=== PATIENT | male | born 1935 | race Caucasian/White ===

== ENCOUNTER 2020-07-27 12:09 | Inpatient (IN) | payer MEDICARE ==
[2020-07-27] MEDS ORDERED: CALCIUM CARBONATE 500 MG CHEWABLE PO PRN (15:19)
[2020-07-27] MEDS ORDERED: NALOXONE 0.4 MG/ML 1 ML VIAL IV PRN (15:19)
[2020-07-27] MEDS ORDERED: ONDANSETRON 4 MG/2 ML VIAL IVP PRN (15:19)
[2020-07-27] MEDS ORDERED: LACTULOSE 20 GM/30 ML CUP PO PRN (15:19)
[2020-07-27] MEDS ORDERED: ACETAMINOPHEN TAB 325 MG TAB PO PRN (15:19)
[2020-07-27] MEDS ORDERED: MAG HYDROX/AL HYDROX/SIMETH 30 ML CUP PO PRN (15:19)
[2020-07-27] MEDS ORDERED: MELATONIN 3 MG TABLET PO PRN (15:19)
[2020-07-27 16:03] LABS: Basophils # (A) 0.1 k/uL (0-0.2); Basophils % (A) 1 %; Eosinophils # (A) 0.1 k/uL (0-0.7); Eosinophils % (A) 1 %; HGB 10.2 gm/dL (13.0-17.5); Hypochromasia Moderate; Lymphocytes # (A) 0.6 k/uL (1.0-4.8); Lymphocytes % (A) 11 %; MCHC 31.8 g/dL (31.0-37.0); MCV 106.8 fL (80.0-100.0); Macrocytosis Moderate; Mean Platelet Volume 10.6; Monocytes # (A) 0.3 k/uL (0-1.0); Monocytes % (A) 6 %; Neutrophils # (A) 4.3 k/uL (1.3-7.7); Neutrophils % (A) 80 %; Platelet Count 138 k/uL (150-450); RBC 2.99 m/uL (4.30-5.90); WBC 5.4 k/uL (3.8-10.6)
[2020-07-27 16:39] LABS: Albumin 3.9 g/dL (3.5-5.0); Calcium 9.4 mg/dL (8.4-10.2); Potassium 5.6 mmol/L (3.5-5.1); Total Bilirubin 0.5 mg/dL (0.2-1.3); Total Protein 7.2 g/dL (6.3-8.2)
[2020-07-27] MEDS: ENOXAPARIN 40 MG/0.4 ML SYRINGE SQ SCH (17:28)
--- NOTE | 2020-07-27 18:16 | XR ---
EXAMINATION TYPE: XR chest 2V DATE OF EXAM: 07/27/2020 COMPARISON: NONE HISTORY: Short of breath TECHNIQUE: 2 views FINDINGS: There is blunting of the costophrenic angles. Heart size is normal. There are chest leads. There are no hilar masses. There are surgical clips at the right paratracheal region. There is mild p ulmonary congestion. There is some fluid in the fissures. IMPRESSION: There are changes consistent with mild chronic heart failure.
[2020-07-27] MEDS: SODIUM BICARBONATE TAB 650 MG TAB PO SCH (20:33)
[2020-07-27] MEDS: METOPROLOL TARTRATE 25 MG TAB PO SCH (20:33)
[2020-07-28] MEDS: PANTOPRAZOLE 40 MG TABLET PO SCH (06:24)
[2020-07-28] MEDS: ENOXAPARIN 40 MG/0.4 ML SYRINGE SQ SCH (08:47)
[2020-07-28 08:56] LABS: Calcium 8.8 mg/dL (8.4-10.2)
[2020-07-28] MEDS ORDERED: FERROUS SULFATE 325 MG TAB PO SCH (09:00)
[2020-07-28] MEDS: allopurinoL 100 MG TAB PO SCH (09:05)
[2020-07-28] MEDS: METOPROLOL TARTRATE 25 MG TAB PO SCH ×2 (09:05→20:18)
[2020-07-28] MEDS: SODIUM BICARBONATE TAB 650 MG TAB PO SCH ×2 (09:05→20:18)
[2020-07-28] MEDS: FUROSEMIDE 10 MG/ML 10 ML VIAL IV SCH ×2 (09:06→20:20)
[2020-07-28 09:09] LABS: Potassium 5.8 mmol/L (3.5-5.1)
[2020-07-28 09:11] LABS: Magnesium 1.7 mg/dL (1.6-2.3)
[2020-07-28] MEDS ORDERED: IV FLUID CONTINUATION 500 ML IV ONE (09:36)
[2020-07-28] MEDS ORDERED: fentaNYL (PF) 50 MCG/ML 2 ML AMP IVP ONE (09:40)
[2020-07-28] MEDS ORDERED: MIDAZOLAM 2 MG/2 ML VIAL IVP ONE (09:40)
[2020-07-28] MEDS ORDERED: LIDOCAINE 1% INJ 10MG/ML (20 ML MDV) SQ ONE ×2 (09:41)
[2020-07-28] MEDS ORDERED: INSULIN REGULAR 100 UNIT/ML VIAL (IV) IV ONE (09:47)
[2020-07-28] MEDS ORDERED: DEXTROSE 50% SYRINGE 50 ML IVP STA (09:47)
--- NOTE | 2020-07-28 09:50 | P.NPCON ---
History of Present Illness - Reason for Consult chronic renal failure - History of Present Illness Reason for consultation: Chronic kidney disease History of present illness: Patient is a 84-year-old male seen in renal consultation for chronic kidney disease. 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 He has had proteinuria but had refused kidney biopsy. Patient presented to the hospital with shortness of breath. He denies any significant cough. No fever or chills. No vomiting or diarrhea. Oral intake has been fair. No edema. Has been voiding. No hematuria or dysuria. Blood pressure has been stable. Chest x-ray suggestive of chronic CHF. He is currently on room air. Denies use of nonsteroidals. Potassium level was 5.8 this morning it was a hemolyzed sample. No history of diabetes. Vital signs are stable. General: The patient appeared well nourished and normally developed. HEENT: Head exam is unremarkable. Neck is without jugular venous distension. LUNGS: Breath sounds decreased. HEART: Rate and Rhythm are regular. ABDOMEN: Soft, no distention. EXTREMITITES: No edema. 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 History of Any Multi-Drug Resistant Organisms: None Reported Past Surgical History: Cholecystectomy, Prostate Surgery Additional Past Surgical History / Comment(s): PARTIAL RIGHT LUNG REMOVED. Past Anesthesia/Blood Transfusion Reactions: No Reported Reaction Smoking Status: Former smoker - Past Family History Brother(s) Family Medical History: Cancer Medications and Allergies Home Medications Medication Instructions Recorded Confirmed Type Allopurinol [Zyloprim] 100 mg PO DAILY 07/10/20 07/27/20 History Ferrous Sulfate [Iron] 325 mg PO DAILY 07/10/20 07/27/20 History Metoprolol Tartrate [Lopressor] 25 mg PO PC-BID 07/10/20 07/27/20 History Omeprazole 20 mg PO DAILY 07/10/20 07/27/20 History Sodium Bicarbonate Tab 650 mg PO BID 07/10/20 07/27/20 History Allergies Allergy/AdvReac Type Severity Reaction Status Date / Time No Known Allergies Allergy Verified 07/27/20 15:34 Physical Exam Vitals: Vital Signs Temp Pulse Resp BP Pulse Ox 07/28/20 08:53 97.8 F 94 18 163/79 96 07/28/20 04:00 85 16 156/75 95 07/28/20 00:00 86 16 158/78 93 L 07/27/20 20:00 98.2 F 100 16 161/83 93 L 07/27/20 16:44 97 18 164/75 96 07/27/20 14:08 97.7 F 102 H 18 172/88 94 L Intake and Output 07/27/20 07/28/20 07/28/20 22:59 06:59 14:59 Intake Total 240 0 Output Total 350 275 250 Balance -110 -275 -250 Intake: Oral 240 0 Output: Urine 350 275 250 Other: Voiding Method Urinal Urinal # Voids 1 Weight 57.8 kg Results - Lab Results Most recent lab results Calcium 8.8 mg/dL (8.4-10.2) 07/28/20 08:17 Phosphorus 6.0 mg/dL (2.5-4.5) H 07/27/20 15:30 Magnesium 1.7 mg/dL (1.6-2.3) 07/28/20 08:17 07/27/20 15:30 07/28/20 08:17 Assessment and Plan Plan: Assessment: 1. Chronic kidney disease stage V secondary to nephrosclerosis as well as underlying GN as he does have proteinuria. Kidney biopsy wasn't done as his GFR has been quite depressed and patient had also refused kidney biopsy outpatient. Creatinine 5.89 today. 2. Hyperkalemia secondary to chronic kidney disease. 3. Dyspnea. Chest x-ray suggestive of volume overload. 4. Anemia of chronic kidney disease. Rule out iron deficiency. Plan: Add IV Lasix 80 mg twice daily. 10 units IV regular insulin with an amp of D50 now. Vascular surgery consulted for permacath placement. Plan for first treatment of hemodialysis today and second treatment tomorrow. route sales manager to set up outpatient hemodialysis. Plan discussed with the patient and he is agreeable. Check iron studies. Follow-up echocardiogram. Thank you for the consultation. I will continue to follow the patient with you during his hospital stay.
--- NOTE | 2020-07-28 10:28 | IR ---
Fluoroscopy HISTORY: Dialysis catheter placement 0.9 minutes fluoroscopy time supplied to the referring clinician. 4 intraoperative C-arm images docu ment the procedure. See dictated report from vascular surgery.
--- NOTE | 2020-07-28 10:29 | P.GSCN ---
History of Present Illness Consult date: 07/28/20 History of present illness: Facundo is an 84-year-old male with known chronic kidney disease who is in evaluation and workup for dialysis access placement by Dr. Marx. He came into the hospital with worsening respiratory status and found to have elevated renal dysfunction and therefore was recommended to undergo dialysis. At this time it is not emergent and they're requesting a dialysis catheter placed. 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 History of Any Multi-Drug Resistant Organisms: None Reported Past Surgical History: Cholecystectomy, Prostate Surgery Additional Past Surgical History / Comment(s): PARTIAL RIGHT LUNG REMOVED. Past Anesthesia/Blood Transfusion Reactions: No Reported Reaction Smoking Status: Former smoker - Past Family History Brother(s) Family Medical History: Cancer Medications and Allergies Home Medications Medication Instructions Recorded Confirmed Type Allopurinol [Zyloprim] 100 mg PO DAILY 07/10/20 07/27/20 History Ferrous Sulfate [Iron] 325 mg PO DAILY 07/10/20 07/27/20 History Metoprolol Tartrate [Lopressor] 25 mg PO PC-BID 07/10/20 07/27/20 History Omeprazole 20 mg PO DAILY 07/10/20 07/27/20 History Sodium Bicarbonate Tab 650 mg PO BID 07/10/20 07/27/20 History Allergies Allergy/AdvReac Type Severity Reaction Status Date / Time No Known Allergies Allergy Verified 07/27/20 15:34 Surgical - Exam Vital Signs Temp Pulse Resp BP Pulse Ox 97.7 F 102 H 18 172/88 94 L 07/27/20 14:08 07/27/20 14:08 07/27/20 14:08 07/27/20 14:08 07/27/20 14:08 General is a pleasant cooperative male, thin and frail. HEENT is normocephalic, atraumatic, extraocular motion intact. Heart appears regular at this time. Lungs are clear but diminished breath sounds. Abdomen is soft, flat, nontender nondistended. Examination no clubbing, cyanosis or edema. Normal mood and affect. Cranial nerves II-12 grossly intact Results - Labs 07/27/20 15:30 07/28/20 08:17 Abnormal Lab Results - Last 24 Hours (Table) 07/27/20 07/27/20 07/27/20 Range/Units 15:30 15:30 15:30 RBC 2.99 L (4.30-5.90) m/uL Hgb 10.2 L (13.0-17.5) gm/dL Hct 32.0 L (39.0-53.0) % MCV 106.8 H (80.0-100.0) fL Plt Count 138 L (150-450) k/uL Lymphocytes # 0.6 L (1.0-4.8) k/uL Potassium 5.6 H (3.5-5.1) mmol/L BUN 110 H* (9-20) mg/dL Creatinine 5.82 H (0.66-1.25) mg/dL Glucose 118 H (74-99) mg/dL Phosphorus 6.0 H (2.5-4.5) mg/dL 07/28/20 Range/Units 08:17 RBC (4.30-5.90) m/uL Hgb (13.0-17.5) gm/dL Hct (39.0-53.0) % MCV (80.0-100.0) fL Plt Count (150-450) k/uL Lymphocytes # (1.0-4.8) k/uL Potassium 5.8 H (3.5-5.1) mmol/L BUN 111 H* (9-20) mg/dL Creatinine 5.89 H (0.66-1.25) mg/dL Glucose (74-99) mg/dL Phosphorus (2.5-4.5) mg/dL Diabetes panel 07/27/20 07/28/20 Range/Units 15:30 08:17 Sodium 142 141 (137-145) mmol/L Potassium 5.6 H 5.8 H (3.5-5.1) mmol/L Chloride 105 103 (98-107) mmol/L Carbon Dioxide 24 26 (22-30) mmol/L BUN 110 H* 111 H* (9-20) mg/dL Creatinine 5.82 H 5.89 H (0.66-1.25) mg/dL Glucose 118 H 78 (74-99) mg/dL Calcium 9.4 8.8 (8.4-10.2) mg/dL AST 27 (17-59) U/L ALT 12 (4-49) U/L Alkaline Phosphatase 67 (38-126) U/L Total Protein 7.2 (6.3-8.2) g/dL Albumin 3.9 (3.5-5.0) g/dL Calcium panel 07/27/20 07/27/20 07/28/20 Range/Units 15:30 15:30 08:17 Calcium 9.4 8.8 (8.4-10.2) mg/dL Phosphorus 6.0 H (2.5-4.5) mg/dL Albumin 3.9 (3.5-5.0) g/dL Pituitary panel 07/27/20 07/28/20 Range/Units 15:30 08:17 Sodium 142 141 (137-145) mmol/L Potassium 5.6 H 5.8 H (3.5-5.1) mmol/L Chloride 105 103 (98-107) mmol/L Carbon Dioxide 24 26 (22-30) mmol/L BUN 110 H* 111 H* (9-20) mg/dL Creatinine 5.82 H 5.89 H (0.66-1.25) mg/dL Glucose 118 H 78 (74-99) mg/dL Calcium 9.4 8.8 (8.4-10.2) mg/dL Adrenal panel 07/27/20 07/28/20 Range/Units 15:30 08:17 Sodium 142 141 (137-145) mmol/L Potassium 5.6 H 5.8 H (3.5-5.1) mmol/L Chloride 105 103 (98-107) mmol/L Carbon Dioxide 24 26 (22-30) mmol/L BUN 110 H* 111 H* (9-20) mg/dL Creatinine 5.82 H 5.89 H (0.66-1.25) mg/dL Glucose 118 H 78 (74-99) mg/dL Calcium 9.4 8.8 (8.4-10.2) mg/dL Total Bilirubin 0.5 (0.2-1.3) mg/dL AST 27 (17-59) U/L ALT 12 (4-49) U/L Alkaline Phosphatase 67 (38-126) U/L Total Protein 7.2 (6.3-8.2) g/dL Albumin 3.9 (3.5-5.0) g/dL Assessment and Plan Assessment: End-stage renal disease now requiring dialysis Plan: Given the planning for dialysis access, we will go ahead with patient about how the health's catheter and continue the workup and scheduling of the access site as an outpatient. This will be done in the relatively near future hopefully later this morning.
--- NOTE | 2020-07-28 10:34 | P.OP ---
Date of Procedure: 07/28/20 Description of Procedure: DATE OF PROCEDURE: 07/28/2020 PREOPERATIVE DIAGNOSIS: [End-stage renal disease]. PROCEDURE: 1. Ultrasound-guided micropuncture used to select the [right] IJ. 2. Moderate conscious sedation 20 minutes 3. Fluoroscopic assisted Placement of a [23] cm tunneled central venous dialysis catheter. PROCEDURE: This patient was brought to the laborer salvage. The [right] side of the neck and chest was prepped and draped in sterile manner. 1% lidocaine was infiltrated in the neck and chest area. After that, ultrasound-guided micropuncture into the [right] jugular vein. Micropuncture wire was passed. Micropuncture guidewire was advanced. A 4-Kittitian sheath was placed and Selding er technique was used to place the other guidewire. It was confirmed in place in the inferior vena cava with fluoroscopic imaging. The proposed tunnel was then anesthetized with 1% lidocaine plain. A incision was made in the anterior chest wall as well as enlarged at the level of the insertion site. The 23 cm previously flushed dialysis catheter was tunneled. Serial dilation was performed over the wire under fluoroscopic visualization. The dialysis catheter tear-away sheath was placed. The catheter was inserted through this and the tear-away sheath was removed. Tip of the catheter in the superior vena cava and atrium, flushed with heparin an saline. It was in good position. Sheath was removed. The insertion site of the neck was reapproximated with interrupted sutures of 3-0 Vicryl. The catheter was tacked in place with 3-0 nylon. Patient tolerated the procedure well. A post procedure chest x-ray is pending
--- NOTE | 2020-07-28 11:18 | XR ---
EXAMINATION TYPE: XR chest 1V confirm line [facility] DATE OF EXAM: 07/28/2020 COMPARISON: 07/27/2020 HISTORY: Confirm line placement TECHNIQUE: Single frontal view of the chest is obtained. FINDINGS: Interval placement of a dialysis catheter terminating deep in the right atrium. Left basilar pleural-parenchymal disease appears similar to the prior examination. Surgical clips overlie the right upper lung zone/paramediastinal region. Cardiac silhouette is unchanged. IMPRESSION: Interval placement of dialysis catheter terminating deep in the right atrium.
--- NOTE | 2020-07-28 11:53 | ECHOF ---
Referral Reason:Short of breath MEASUREMENTS -------- HEIGHT: 175.3 cm WEIGHT: 57.6 kg BP: 156/75 RVIDd: 2.7 cm (< 3.3) IVSd: 1.3 cm (0.6 - 1.1) LVIDd: 2.9 cm (3.9 - 5.3) LVPWd: 1.4 cm (0.6 - 1.1) IVSs: 1.4 cm LVIDs: 2.9 cm LVPWs: 1.2 cm LA Diam: 4.0 cm (2.7 - 3.8) Ao Diam: 3.3 cm (2.0 - 3.7) AV Cusp: 0.4 cm (1.5 - 2.6) MV EXCURSION: 18.395 mm (> 18.000) MV EF SLOPE: 91 mm/s (70 - 150) EPSS: 0.9 cm MV E Primitivo: 0.62 m/s MV DecT: 135 ms MV A Primitivo: 0.80 m/s MV E/A Ratio: 0.78 AV maxP.22 mmHg AV meanP.90 mmHg RAP: 5.00 mmHg RVSP: 37.31 mmHg FINDINGS -------- Sinus rhythm. This was a technically good study. The left ventricular size is normal. There is mild concentric left ventricular hypertrophy. Overa ll left ventricular systolic function is low-normal with, an EF between 50 - 55 %. The right ventricle is normal in size. The left atrial size is normal. The right atrial size is normal. There is mild aortic regurgitation. Peak/mean gradient across the Aortic Valve is 42.22mmHg / 24.90 mmHg. There is moderate to severe aortic stenosis. Vmax of 3.25m/s however BERRY by continuity equat ion of 0.73cm2, dimensionless index of 0.21, and SVi of 25.8 concnerning for paradoxical low flow low gradient severe aortic stenosis. Recommend CATIA, low dose dobutamine stress echo or CT calcium scori ng to further investigate. Mild mitral regurgitation is present. Moderate tricuspid regurgitation present. Right ventricular systolic pressure is normal at < 35 mmH g. There is no pulmonic regurgitation present. There is no pericardial effusion. CONCLUSIONS -------- 1. The left ventricular size is normal. 2. There is mild concentric left ventricular hypertrophy. 3. Overall left ventricular systolic function is low-normal with, an EF between 50 - 55 %. 4. The right ventricle is normal in size. 5. The left atrial size is normal. 6. The right atrial size is normal. 7. There is mild aortic regurgitation. 8. Peak/mean gradient across the Aortic Valve is 42.22mmHg / 24.90mmHg. 9. There is moderate to severe aortic stenosis. Vmax of 3.25m/s however BERRY by continuity equation o f 0.73cm2, dimensionless index of 0.21, and SVi of 25.8 concnerning for paradoxical low flow low grad ient severe aortic stenosis. Recommend CATIA, low dose dobutamine stress echo or CT calcium scoring to further investigate. 10. Mild mitral regurgitation is present. 11. Moderate tricuspid regurgitation present. 12. There is no pulmonic regurgitation present. 13. There is no pericardial effusion. SHUTTLE FITTING SUPERVISOR: Marilyn Quintero RDCS
[2020-07-28 12:10] LABS: Glucose,Whole Blood 139 mg/dL (75-99)
--- NOTE | 2020-07-28 15:10 | P.HPIM ---
History of Present Illness H&P Date: 07/27/20 Chief Complaint: Tired History of presenting complaint: This is a very pleasant 84-year-old patient, follows with Dr. Karla Soto. Chronic stable medical conditions include GERD, hypertension, obstructive arthritis, peripheral neuropathy, bilateral foot drop. Patient has advancing renal function. He was due to see vascular for a hemodialysis catheter placement. Symptoms have gotten worse. Appetite has gone down. Gets easily short of breath. Patient still able to make urine. Patient initially presented to [facility]. And he was transferred here for vascular access. Vascular surgery's been consulted. Patient's son is at the bedside. No fever n o chills. Tired. No chest pain. Review of systems: GEN.: Tired decreased appetite EYES: None HEENT: Decreased hearing NECK: None RESPIRATORY: Short of breath CARDIOVASCULAR: None GASTROINTESTINAL: None GENITOURINARY: None MUSCULOSKELETAL: Some joint pains, bilateral ankle support for footdrop LYMPHATICS: None HEMATOLOGICAL: None PSYCHIATRY: None NEUROLOGICAL: Does use a cane Past medical history to include: GERD, hypertension, osteoarthritis, kidney failure, lung cancer with partial lobectomy, treated with chemotherapy causing bilateral foot drop and peripheral neuropathy, BPH Social history: Patient stopped smoking cigarettes 45 years ago. No alcohol. Lives alone. Family history: Cancer Physical examination: VITAL SIGNS: 87.7, 102, 18, 172/88, 94% room air] GENERAL: BMI 19.2, thin built, laying in bed, a bit tired. EYES: [Pupils equal. Conjunctiva pale. HEENT: External appearance of nose and ears normal, oral cavity grossly normal. NECK: JVD not raised; masses not palpable. HEART: First and second heart sounds are normal; no edema. LUNGS: Respiratory rate normal; clear to auscultation. MUSCULAR skeletal: Evidence of OA. Decreased muscle mass. Bony prominences. ABDOMEN: Soft, nontender, liver spleen not palpable, no masses palpable. PSYCH: Alert and oriented x3; mood and affect normal. NEUROLOGICAL: [Cranial nerves grossly intact; no facial asymmetry, bilateral foot drop with the shoe brace LYMPHATICS: No lymph nodes palpable in the axilla and neck Investigations: WBC 5.4 hemoglobin 10.2 platelets 138 Potassium 5.6 BUN 110 creatinine 5.82 phosphorus 6 EKG tracing personally reviewed by me-normal sinus rhythm, PVC, nonspecific T- wave changes Chest x-ray film personally reviewed by me-fluid overload Assessment and plan: -End-stage renal disease, progressive, symptomatic Patient will need hemodialysis. Vascular consulted for dialysis access -Anemia of chronic kidney disease Follow H&H -Hyperphosphatemia Secondary to renal failure. 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 2-D echocardiogram -Moderate protein calorie malnutrition Consult dietitian Care was discussed with the patient and the son at the bedside.. Consultation nephrology, vascular. For dialysis access. Resume home medications. 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 History of Any Multi-Drug Resistant Organisms: None Reported Past Surgical History: Cholecystectomy, Prostate Surgery Additional Past Surgical History / Comment(s): PARTIAL RIGHT LUNG REMOVED. Past Anesthesia/Blood Transfusion Reactions: No Reported Reaction Smoking Status: Former smoker - Past Family History Brother(s) Family Medical History: Cancer Medications and Allergies Home Medications Medication Instructions Recorded Confirmed Type Allopurinol [Zyloprim] 100 mg PO DAILY 07/10/20 07/27/20 History Ferrous Sulfate [Iron] 325 mg PO DAILY 07/10/20 07/27/20 History Metoprolol Tartrate [Lopressor] 25 mg PO PC-BID 07/10/20 07/27/20 History Omeprazole 20 mg PO DAILY 07/10/20 07/27/20 History Sodium Bicarbonate Tab 650 mg PO BID 07/10/20 07/27/20 History Allergies Allergy/AdvReac Type Severity Reaction Status Date / Time No Known Allergies Allergy Verified 07/27/20 15:34 Physical Exam Vitals: Vital Signs Temp Pulse Resp BP Pulse Ox 07/27/20 14:08 97.7 F 102 H 18 172/88 94 L Intake and Output 07/27/20 07/27/20 07/27/20 06:59 14:59 22:59 Output Total 200 Balance -200 Output: Urine 200 Other: Voiding Method Urinal Weight 58.967 kg Results CBC & Chem 7: 07/27/20 15:30 07/28/20 08:17 Labs: Abnormal Lab Results - Last 24 Hours (Table) 07/27/20 Range/Units 15:30 RBC 2.99 L (4.30-5.90) m/uL Hgb 10.2 L (13.0-17.5) gm/dL Hct 32.0 L (39.0-53.0) % MCV 106.8 H (80.0-100.0) fL Plt Count 138 L (150-450) k/uL Lymphocytes # 0.6 L (1.0-4.8) k/uL Thrombosis Risk Factor Assmnt - Choose All That Apply Any of the Below Risk Factors Present?: Yes Each Factor Represents 1 point: Heart failure (<1month) Other Risk Factors: Yes Each Risk Factor Represents 3 Points: Age 75 years or older Other congenital or acquired thrombophilia - If yes, enter type in comment: No Thrombosis Risk Factor Assessment Total Risk Factor Score: 4 Thrombosis Risk Factor Assessment Level: Moderate Risk
--- NOTE | 2020-07-28 15:17 | P.PN ---
Progress Note - Text Progress Note Date: 07/28/20 Chief Complaint: Tired History of presenting complaint: This is a very pleasant 84-year-old patient, follows with Dr. Karla Soto. Chronic stable medical conditions include GERD, hypertension, obstructive arthritis, peripheral neuropathy, bilateral foot drop. Patient has advancing renal function. He was due to see vascular for a hemodialysis catheter placement. Symptoms have gotten worse. Appetite has gone down. Gets easily short of breath. Patient still able to make urine. Patient initially presented to [facility]. And he was transferred here for vascular access. Vascular surgery's been consulted. Patient's son is at the bedside. No fever no chills. Tired. No chest pain. Admitted with end-stage kidney disease, worsening symptomatic, pulmonary edema, protein calorie malnutrition, anemia. Today: Hemodialysis access was placed, right IJ by Dr. Paniagua. Pending hemodialysis this afternoon. Tired. Bit short of breath. Review of systems: Was done for constitutional, cardiovascular, GI, pulmonary. relevant finding as above Active Medications Acetaminophen (Acetaminophen Tab 325 Mg Tab) 650 mg PO Q6HR PRN PRN Reason: Mild Pain or Fever > 100.5 Al Hydroxide/Mg Hydroxide (Mag Hydrox/Al Hydrox/Simeth 30 Ml Cup) 15 ml PO Q6HR PRN PRN Reason: Indigestion Allopurinol (Allopurinol 100 Mg Tab) 100 mg PO DAILY [facility] Last Admin: 07/28/20 09:05 Dose: 100 mg Documented by: Calcium Acetate (Calcium Acetate 667 Mg Tab) 667 mg PO TID-W/MEALS [facility] Calcium Carbonate/Glycine (Calcium Carbonate 500 Mg Chewable) 1,000 mg PO Q4HR PRN PRN Reason: Dyspepsia Enoxaparin Sodium (Enoxaparin 40 Mg/0.4 Ml Syringe) 40 mg SQ DAILY [facility] Last Admin: 07/28/20 08:47 Dose: Not Given Documented by: Ferrous Sulfate (Ferrous Sulfate 325 Mg Tab) 325 mg PO DAILY [facility] Last Admin: 07/28/20 09:05 Dose: 325 mg Documented by: Furosemide (Furosemide 10 Mg/Ml 10 Ml Vial) 80 mg IV Q12HR [facility] Last Admin: 07/28/20 09:06 Dose: 80 mg Documented by: Lactulose (Lactulose 20 Gm/30 Ml Cup) 20 gm PO DAILY PRN PRN Reason: Constipation Melatonin (Melatonin 3 Mg Tablet) 3 mg PO HS PRN PRN Reason: Insomnia Metoprolol Tartrate (Metoprolol Tartrate 25 Mg Tab) 25 mg PO BID [facility] Last Admin: 07/28/20 09:05 Dose: 25 mg Documented by: Naloxone HCl (Naloxone 0.4 Mg/Ml 1 Ml Vial) 0.2 mg IV Q2M PRN PRN Reason: Opioid Reversal Ondansetron HCl (Ondansetron 4 Mg/2 Ml Vial) 4 mg IVP Q8HR PRN PRN Reason: Nausea And Vomiting Pantoprazole Sodium (Pantoprazole 40 Mg Tablet) 40 mg PO AC-BRKFST [facility] Last Admin: 07/28/20 06:24 Dose: 40 mg Documented by: Sodium Bicarbonate (Sodium Bicarbonate Tab 650 Mg Tab) 650 mg PO BID [facility] Last Admin: 07/28/20 09:05 Dose: 650 mg Documented by: Past medical history to include: GERD, hypertension, osteoarthritis, kidney failure, lung cancer with partial lobectomy, treated with chemotherapy causing bilateral foot drop and peripheral neuropathy, BPH Social history: Patient stopped smoking cigarettes 45 years ago. No alcohol. Lives alone. Family history: Cancer Physical examination: VITAL SIGNS: 97.4, 89, 18, 111/65, 93% on room air GENERAL: BMI 18.8, reclining in bed, tired. Right chest wall hemodialysis catheter EYES: [Pupils equal. Conjunctiva pale. NECK: JVD not raised; masses not palpable. HEART: First and second heart sounds are normal; no edema. LUNGS: Respiratory rate normal; clear to auscultation. MUSCULAR skeletal: Evidence of OA. Decreased muscle mass. Bony prominences. ABDOMEN: Soft, nontender, liver spleen not palpable, no masses palpable. PSYCH: Alert and oriented x3; mood and affect normal. NEUROLOGICAL: [Cranial nerves grossly intact; no facial asymmetry, bilateral foot drop with the shoe brace Investigations: 2-D echocardiogram: Here 50-55%. Moderate to severe aortic stenosis. Moderate TR. WBC 5.4 hemoglobin 10.2 platelets 138 Potassium 5.6 BUN 110 creatinine 5.82 phosphorus 6 EKG tracing personally reviewed by me-normal sinus rhythm, PVC, nonspecific T- wave changes Chest x-ray film personally reviewed by me-fluid overload Assessment and plan: -End-stage renal disease, progressive, symptomatic-slow to respond Dialysis catheter placed this morning. Pending hemodialysis this afternoon -Anemia of chronic kidney disease Follow H&H -Hyperphosphatemia Secondary to renal failure. 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 Consultation nephrology, vascular. For dialysis access. Resume home medications. Given the complexity and severity of patient's condition expect the patient to be in the hospital at least for 2 overnights
[2020-07-28] MEDS: CALCIUM ACETATE 667 MG TAB PO SCH (17:30)
[2020-07-28 17:42] LABS: Glucose,Whole Blood 117 mg/dL (75-99)
[2020-07-28] MEDS: GABAPENTIN 100 MG CAP PO SCH ×2 (18:36→18:48)
[2020-07-28 18:53] LABS: % Iron Saturation 21.56 (15.00-50.00)
[2020-07-28 21:38] LABS: Hepatitis B Surface AB- Quant <3.5 mIU/mL; Hepatitis B Surface Antibody Non-Reactive (Non-Reactive); Hepatitis B Surface Antigen Non-Reactive (Non-Reactive)
[2020-07-29] MEDS: CALCIUM ACETATE 667 MG TAB PO SCH ×3 (06:39→17:11)
[2020-07-29] MEDS: PANTOPRAZOLE 40 MG TABLET PO SCH (06:39)
[2020-07-29 07:15] LABS: Basophils # (A) 0.1 k/uL (0-0.2); Basophils % (A) 1 %; Eosinophils # (A) 0.1 k/uL (0-0.7); Eosinophils % (A) 1 %; HCT 30.3 % (39.0-53.0); HGB 9.3 gm/dL (13.0-17.5); Hypochromasia Moderate; Lymphocytes # (A) 0.7 k/uL (1.0-4.8); Lymphocytes % (A) 9 %; MCH 33.1 pg (25.0-35.0); MCHC 30.6 g/dL (31.0-37.0); MCV 108.3 fL (80.0-100.0); Macrocytosis Marked; Mean Platelet Volume 9.4; Monocytes # (A) 0.5 k/uL (0-1.0); Monocytes % (A) 6 %; Neutrophils # (A) 6.7 k/uL (1.3-7.7); Neutrophils % (A) 82 %; Platelet Count 174 k/uL (150-450); RDW 15.8 % (11.5-15.5); WBC 8.2 k/uL (3.8-10.6)
[2020-07-29 07:29] LABS: Calcium 8.3 mg/dL (8.4-10.2); Magnesium 1.5 mg/dL (1.6-2.3); Potassium 4.5 mmol/L (3.5-5.1)
--- NOTE | 2020-07-29 08:52 | P.PN ---
Subjective Patient is seen in follow-up for end-stage renal disease. Started on hemodialysis July 28. Tolerated dialysis well yesterday with 1 L ultrafiltrat ion. Dyspnea improved. Vital signs are stable. General: The patient appeared well nourished and normally developed. HEENT: Head exam is unremarkable. Neck is without jugular venous distension. LUNGS: Breath sounds decreased. HEART: Rate and Rhythm are regular. ABDOMEN: Soft, no distension. EXTREMITITES: 1+ edema. Objective - Vital Signs Vital signs: Vital Signs Temp 98.1 F 07/29/20 03:28 Pulse 91 07/29/20 03:56 Resp 18 07/29/20 03:56 BP 115/65 07/29/20 03:28 Pulse Ox 96 07/29/20 03:28 Intake & Output 07/28/20 07/29/20 07/29/20 18:59 06:59 18:59 Intake Total 270 10 Output Total 1975 1320 Balance -1705 -1310 Weight 54.5 kg Intake: IV 70 10 0.9 10 Oral 200 Output: Urine 975 1320 Hemodialysis 1000 Other: Voiding Method Urinal Urinal # Voids 1 - Labs CBC & Chem 7: 07/29/20 06:25 07/29/20 06:25 Labs: Abnormal Lab Results - Last 24 Hours (Table) 07/28/20 07/28/20 07/28/20 Range/Units 08:17 10:41 12:08 RBC (4.30-5.90) m/uL Hgb (13.0-17.5) gm/dL Hct (39.0-53.0) % MCV (80.0-100.0) fL MCHC (31.0-37.0) g/dL RDW (11.5-15.5) % Macrocytosis Sodium (137-145) mmol/L Potassium 5.8 H (3.5-5.1) mmol/L Chloride (98-107) mmol/L BUN 111 H* (9-20) mg/dL Creatinine 5.89 H (0.66-1.25) mg/dL POC Glucose (mg/dL) 139 H (75-99) mg/dL Calcium (8.4-10.2) mg/dL Magnesium (1.6-2.3) mg/dL Iron 58 L (65-175) ug/dL 07/28/20 07/29/20 07/29/20 Range/Units 17:41 06:25 06:25 RBC 2.80 L (4.30-5.90) m/uL Hgb 9.3 L (13.0-17.5) gm/dL Hct 30.3 L (39.0-53.0) % MCV 108.3 H (80.0-100.0) fL MCHC 30.6 L (31.0-37.0) g/dL RDW 15.8 H (11.5-15.5) % Macrocytosis Marked A Sodium 136 L (137-145) mmol/L Potassium (3.5-5.1) mmol/L Chloride 97 L (98-107) mmol/L BUN 73 H (9-20) mg/dL Creatinine 4.63 H (0.66-1.25) mg/dL POC Glucose (mg/dL) 117 H (75-99) mg/dL Calcium 8.3 L (8.4-10.2) mg/dL Magnesium 1.5 L (1.6-2.3) mg/dL Iron (65-175) ug/dL Assessment and Plan Plan: Assessment: 1. End-stage renal disease secondary to nephrosclerosis as well as underlying GN as he does have proteinuria. Kidney biopsy wasn't done as his GFR has been quite depressed and patient had also refused kidney biopsy outpatient. Creatinine 5.89 on admission. Started on hemodialysis July 28. 2. Hyperkalemia secondary to chronic kidney disease. Improved postdialysis. 3. Dyspnea. Chest x-ray suggestive of volume overload. Improved with ultrafiltration and diuresis. 4. Anemia of chronic kidney disease. 5. Severe aortic stenosis and moderate tricuspid regurgitation. Plan: Maintain IV Lasix. Second treatment of hemodialysis today. occupational safety and health manager to set up outpatient hemodialysis. I will give a dose of IV iron today. Add Aranesp.
[2020-07-29] MEDS ORDERED: METOPROLOL TARTRATE 12.5 MG TAB PO SCH (09:00)
[2020-07-29] MEDS ORDERED: DARBEPOETIN ALFA 40 MCG/0.4 ML SYRINGE SQ SCH (09:00)
[2020-07-29] MEDS ORDERED: SODIUM FERRIC GLUCONAT-SUCROSE 125 MG in SODIUM CHLORIDE 0.9% 100 ML IVPB ONE (09:15)
[2020-07-29] MEDS: ENOXAPARIN 40 MG/0.4 ML SYRINGE SQ SCH (09:22)
--- NOTE | 2020-07-29 09:30 | P.CRDCN ---
History of Present Illness History of present illness: HISTORY OF PRESENTING ILLNESS This is a pleasant 84-year-old male past medical history significant for end stage renal disease, hypertension, lung cancer s/p lobectomy and BPH. He denies prior history of coronary artery disease and does not follow in the office with a rn lactation. We have been asked to see in consultation for aortic stenosis. The patient states he has had a murmur since but it has never been investigated. He has been following with nephrology in the outpatient setting and had plans to start dialysis. However, he became short of breath and presented to the ER at [facility]. Since being transferred here he a dialysis catheter placed and has undergone dialysis yesterday and is scheduled again today. He had an echocardiogram performed revealing preserved LV systolic function with EF 50-55%, severe aortic moderate to stenosis with a mean gradient of 24 mmHg, mild MR and moderate TR. EKG obtained on arrival revealed sinus mechanism heart rate of [address] depression noted in the lateral leads. Chest xray revealed left basilar pleural-parenchymal disease. Laboratory data reviewed, WBC 8.2, hgb 9.3, plt 174, sodium 136, potassium 4.5, creatinine 4.63 and magnesium 1.5. Current daily cardiac medications include lopressor 25 mg BID. REVIEW OF SYSTEMS At the time of my exam: CONSTITUTIONAL: Denies fever or chills. CARDIOVASCULAR: Denies chest pain, shortness of breath, orthopnea, PND or palpitations. RESPIRATORY: Denies cough. GASTROINTESTINAL: Denies abdominal pain, diarrhea, constipation, nausea or vomiting. MUSCULOSKELETAL: Denies myalgias. NEUROLOGIC: Denies numbness, tingling, headacbe or weakness. ENDOCRINE: Denies fatigue, weight change, polydipsia or polyurina. GENITOURINARY: Denies burning, hematuria or urgency with micturation. HEMATOLOGIC: Denies history of anemia or bleeding. PHYSICAL EXAMINATION Blood pressure 115/65 heart rate 91 afebrile and maintaining oxygen saturation on room air. CONSTITUTIONAL: No apparent distress. HEENT: Head is normocephalic. Pupils are equal, round. Sclerae anicteric. Mucous membranes of the mouth are moist. No JVD. No carotid bruit. CHEST EXAMINATION: Lungs are clear to auscultation. No chest wall tenderness is noted on palpation or with deep breathing. HEART EXAMINATION: Regular rate and rhythm. S1, S2 heard. Systolic ejection murmur at all listening points, no gallops or rub. ABDOMEN: Soft, nontender. Positive bowel sounds. EXTREMITIES: 2+ peripheral pulses, trace edema to the left lower erxtremity and no edema on the right and no calf tenderness. NEUROLOGIC EXAMINATION: Patient is awake, alert and oriented x3. ASSESSMENT Aortic stenosis Volume overload secondary to ESRD End stage renal disease Hematuria Hypertension PLAN Continue dialysis per nephrology. Aortic stenosis is currently stable. Will require further outpatient work-up once his volume status has improved with dialysis. Thank you kindly for this consultation. Nurse Practitioner note has been reviewed, I agree with a documented findings and plan of care. Patient was seen and examined. 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 History of Any Multi-Drug Resistant Organisms: None Reported Past Surgical History: Cholecystectomy, Prostate Surgery Additional Past Surgical History / Comment(s): PARTIAL RIGHT LUNG REMOVED. Past Anesthesia/Blood Transfusion Reactions: No Reported Reaction Smoking Status: Former smoker - Past Family History Brother(s) Family Medical History: Cancer Medications and Allergies Home Medications Medication Instructions Recorded Confirmed Type Allopurinol [Zyloprim] 100 mg PO DAILY 07/10/20 07/27/20 History Ferrous Sulfate [Iron] 325 mg PO DAILY 07/10/20 07/27/20 History Metoprolol Tartrate [Lopressor] 25 mg PO PC-BID 07/10/20 07/27/20 History Omeprazole 20 mg PO DAILY 07/10/20 07/27/20 History Sodium Bicarbonate Tab 650 mg PO BID 07/10/20 07/27/20 History Allergies Allergy/AdvReac Type Severity Reaction Status Date / Time No Known Allergies Allergy Verified 07/27/20 15:34 Physical Exam Vitals: Vital Signs Temp Pulse Resp BP Pulse Ox 07/29/20 03:56 91 18 07/29/20 03:28 98.1 F 91 18 115/65 96 07/29/20 02:00 86 18 07/29/20 00:00 86 18 07/28/20 23:31 97 F L 86 18 136/70 96 07/28/20 20:00 97.4 F L 95 18 134/73 95 07/28/20 16:04 98.0 F 89 18 133/72 97 07/28/20 14:07 97.2 F L 83 20 130/68 07/28/20 11:02 97.4 F L 89 18 111/65 92 L 07/28/20 10:31 80 16 131/73 93 L 07/28/20 08:53 97.8 F 94 18 163/79 96 Intake and Output 07/28/20 07/29/20 07/29/20 22:59 06:59 14:59 Intake Total 210 Output Total 475 1070 Balance -265 -1070 Intake: IV 10 0.9 10 Oral 200 Output: Urine 475 1070 Other: Voiding Method Urinal Urinal # Voids 1 1 Weight 54.5 kg Results 07/29/20 06:25 07/29/20 06:25 CBC 07/29/20 Range/Units 06:25 WBC 8.2 (3.8-10.6) k/uL RBC 2.80 L (4.30-5.90) m/uL Hgb 9.3 L (13.0-17.5) gm/dL Hct 30.3 L (39.0-53.0) % Plt Count 174 (150-450) k/uL Comprehensive Metabolic Panel 07/28/20 07/28/20 07/29/20 Range/Units 08:17 20:41 06:25 Sodium 141 136 L (137-145) mmol/L Potassium 5.8 H 4.3 4.5 (3.5-5.1) mmol/L Chloride 103 97 L (98-107) mmol/L Carbon Dioxide 26 30 (22-30) mmol/L BUN 111 H* 73 H (9-20) mg/dL Creatinine 5.89 H 4.63 H (0.66-1.25) mg/dL Glucose 78 83 (74-99) mg/dL Calcium 8.8 8.3 L (8.4-10.2) mg/dL Current Medications Generic Name Dose Route Start Last Admin Trade Name Freq PRN Reason Stop Dose Admin Acetaminophen 650 mg 07/27/20 15:19 Acetaminophen Tab 325 Mg Tab PO Q6HR PRN Mild Pain or Fever > 100.5 Al Hydroxide/Mg Hydroxide 15 ml 07/27/20 15:19 Mag Hydrox/Al Hydrox/Simeth 30 Ml Cup PO Q6HR PRN Indigestion Allopurinol 100 mg 07/28/20 09:00 07/28/20 09:05 Allopurinol 100 Mg Tab PO 100 mg DAILY [facility] Administration Calcium Acetate 667 mg 07/28/20 17:30 07/29/20 06:39 Calcium Acetate 667 Mg Tab PO 667 mg TID-W/MEALS [facility] Administration Calcium Carbonate/Glycine 1,000 mg 07/27/20 15:19 Calcium Carbonate 500 Mg Chewable PO Q4HR PRN Dyspepsia Enoxaparin Sodium 40 mg 07/27/20 16:45 07/28/20 08:47 Enoxaparin 40 Mg/0.4 Ml Syringe SQ Not Given DAILY [facility] Ferrous Sulfate 325 mg 07/28/20 09:00 07/28/20 09:05 Ferrous Sulfate 325 Mg Tab PO 325 mg DAILY [facility] Administration Furosemide 80 mg 07/28/20 09:00 07/28/20 20:20 Furosemide 10 Mg/Ml 10 Ml Vial IV 80 mg Q12HR [facility] Administration Gabapentin 100 mg 07/28/20 18:30 07/28/20 18:48 Gabapentin 100 Mg Cap PO Not Given HS [facility] Lactulose 20 gm 07/27/20 15:19 Lactulose 20 Gm/30 Ml Cup PO DAILY PRN Constipation Melatonin 3 mg 07/27/20 15:19 Melatonin 3 Mg Tablet PO HS PRN Insomnia Metoprolol Tartrate 25 mg 07/27/20 21:00 07/28/20 20:18 Metoprolol Tartrate 25 Mg Tab PO 25 mg BID [facility] Administration Naloxone HCl 0.2 mg 07/27/20 15:19 Naloxone 0.4 Mg/Ml 1 Ml Vial IV Q2M PRN Opioid Reversal Ondansetron HCl 4 mg 07/27/20 15:19 Ondansetron 4 Mg/2 Ml Vial IVP Q8HR PRN Nausea And Vomiting Pantoprazole Sodium 40 mg 07/28/20 07:30 07/29/20 06:39 Pantoprazole 40 Mg Tablet PO 40 mg [id number]-[id number] [facility] Administration Sodium Bicarbonate 650 mg 07/27/20 21:00 07/28/20 20:18 Sodium Bicarbonate Tab 650 Mg Tab PO 650 mg BID [facility] Administration Intake and Output 07/28/20 07/29/20 07/29/20 22:59 06:59 14:59 Intake Total 210 Output Total 475 1070 Balance -265 -1070 Intake: IV 10 0.9 10 Oral 200 Output: Urine 475 1070 Other: Voiding Method Urinal Urinal # Voids 1 1 Weight 54.5 kg 07/29/20 06:25 07/29/20 06:25
--- NOTE | 2020-07-29 11:20 | P.PN ---
Subjective Progress Note Date: 07/29/20 Principal diagnosis: End-stage renal disease requiring hemodialysis Patient is seen and examined without any acute changes through the night. He is status post tunneled hemodialysis catheter placement yesterday. He underwent hemodialysis treatment yesterday and is currently getting treatment of any difficulty. BUN and creatinine improving. He is having some oozing from site. Lovenox was held. A stat x-ray shows hemodialysis catheter terminating deep in right atrium. Objective - Vital Signs Vital signs: Vital Signs Temp 98.4 F 07/29/20 08:10 Pulse 97 07/29/20 08:10 Resp 18 07/29/20 08:10 BP 91/53 07/29/20 08:10 Pulse Ox 97 07/29/20 08:10 Intake & Output 07/28/20 07/29/20 07/29/20 18:59 06:59 18:59 Intake Total 270 10 240 Output Total 1975 1320 Balance -1705 -1310 240 Weight 54.5 kg Intake: IV 70 10 0.9 10 Oral 200 240 Output: Urine 975 1320 Hemodialysis 1000 Other: Voiding Method Urinal Urinal Urinal # Voids 1 - Exam General appearance: The patient is alert, oriented, appears in no acute distress. HET: Head is normocephalic and atraumatic. Neck: Supple without lymphadenopathy. Trachea midline. Right IJ tunnel dialysis catheter in place, small amount of blood oozing under dressing. Heart: S1 S2. Regular rate and rhythm. Lungs: Clear to auscultation. Abdomen: Soft, nontender, nondistended. Extremities: Normal skin color and turgor. Bilateral palpable +2 radial pulses Neurological: No focal deficits. Alert and oriented 3 - Labs CBC & Chem 7: 07/29/20 06:25 07/29/20 06:25 Labs: Abnormal Lab Results - Last 24 Hours (Table) 07/28/20 07/28/20 07/28/20 Range/Units 10:41 12:08 17:41 RBC (4.30-5.90) m/uL Hgb (13.0-17.5) gm/dL Hct (39.0-53.0) % MCV (80.0-100.0) fL MCHC (31.0-37.0) g/dL RDW (11.5-15.5) % Lymphocytes # (1.0-4.8) k/uL Macrocytosis Sodium (137-145) mmol/L Chloride (98-107) mmol/L BUN (9-20) mg/dL Creatinine (0.66-1.25) mg/dL POC Glucose (mg/dL) 139 H 117 H (75-99) mg/dL Calcium (8.4-10.2) mg/dL Magnesium (1.6-2.3) mg/dL Iron 58 L (65-175) ug/dL 07/29/20 07/29/20 Range/Units 06:25 06:25 RBC 2.80 L (4.30-5.90) m/uL Hgb 9.3 L (13.0-17.5) gm/dL Hct 30.3 L (39.0-53.0) % MCV 108.3 H (80.0-100.0) fL MCHC 30.6 L (31.0-37.0) g/dL RDW 15.8 H (11.5-15.5) % Lymphocytes # 0.7 L (1.0-4.8) k/uL Macrocytosis Marked A Sodium 136 L (137-145) mmol/L Chloride 97 L (98-107) mmol/L BUN 73 H (9-20) mg/dL Creatinine 4.63 H (0.66-1.25) mg/dL POC Glucose (mg/dL) (75-99) mg/dL Calcium 8.3 L (8.4-10.2) mg/dL Magnesium 1.5 L (1.6-2.3) mg/dL Iron (65-175) ug/dL Assessment and Plan Assessment: 1. Postop day 1 right IJ tunneled dialysis catheter 2. End-stage renal disease requiring hemodialysis Plan: 1. Continue hemodialysis per recommendations of nephrology 2. Hold Lovenox 3. Continue to monitor bleeding from dialysis site 4. No further surgical intervention per vascular surgery, patient to follow-up with Dr. Marx in the outpatient setting for possible fistula creation The impression and plan of care has been dictated as directed. Dr. Paniagua I performed a history and examination of this patient, discussed the same with the dictator. I agree with the dictator's note ,documented as a scribe. Any additional findings or plans will be noted.
--- NOTE | 2020-07-29 11:41 | P.GSCN ---
History of Present Illness Consult date: 07/29/20 History of present illness: The patient is a 4-year-old gentleman the hospital for worsening renal failure. He is requiring dialysis. He has had gross hematuria and for this reason or asked see the patient. The patient is interviewed at the bedside. He is in urine retention with some old blood in the catheter. He should has a urologic history treated by a Dr. Fierro at [facility]. He apparently had a TURP 6 months ago and has had intermittent bleeding ever since. He has had medication treatment for this up. He states that he last had notable bleeding about a month ago. He states the TURP was for benign disease. He states that he is having a very hard time urinating preoperatively and is urinating better but still with the blood and frequency. The nursing staff stated that he was having blood in the urine last night and he went into retention. He was straight cath for 304 100. Now has an indwelling catheter. I do not know the status of his bladder emptying prior to this hospitalization. 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 History of Any Multi-Drug Resistant Organisms: None Reported Past Surgical History: Cholecystectomy, Prostate Surgery Additional Past Surgical History / Comment(s): PARTIAL RIGHT LUNG REMOVED. Past Anesthesia/Blood Transfusion Reactions: No Reported Reaction Smoking Status: Former smoker - Past Family History Brother(s) Family Medical History: Cancer Medications and Allergies Home Medications Medication Instructions Recorded Confirmed Type Allopurinol [Zyloprim] 100 mg PO DAILY 07/10/20 07/27/20 History Ferrous Sulfate [Iron] 325 mg PO DAILY 07/10/20 07/27/20 History Metoprolol Tartrate [Lopressor] 25 mg PO PC-BID 07/10/20 07/27/20 History Omeprazole 20 mg PO DAILY 07/10/20 07/27/20 History Sodium Bicarbonate Tab 650 mg PO BID 07/10/20 07/27/20 History Allergies Allergy/AdvReac Type Severity Reaction Status Date / Time No Known Allergies Allergy Verified 07/27/20 15:34 Surgical - Exam Vital Signs Temp Pulse Resp BP Pulse Ox 97.7 F 102 H 18 172/88 94 L 07/27/20 14:08 07/27/20 14:08 07/27/20 14:08 07/27/20 14:08 07/27/20 14:08 - General well developed, well nourished, no distress - Eyes PERRL - ENT no hearing loss - Neck no masses, trachea midline - Respiratory normal expansion, normal respiratory effort - Cardiovascular Rhythm: regular - Abdomen Abdomen: soft, non tender - Genitourinary Indwelling Paniagua catheter normal penis and testicles. I dark old blood in the catheter. - Neurologic normal coordination, normal sensation - Musculoskeletal normal posture - Psychiatric oriented to time, oriented to person, oriented to place, speech is normal, memory intact Results - Labs 07/29/20 06:25 07/29/20 06:25 Abnormal Lab Results - Last 24 Hours (Table) 07/28/20 07/28/20 07/28/20 Range/Units 10:41 12:08 17:41 RBC (4.30-5.90) m/uL Hgb (13.0-17.5) gm/dL Hct (39.0-53.0) % MCV (80.0-100.0) fL MCHC (31.0-37.0) g/dL RDW (11.5-15.5) % Lymphocytes # (1.0-4.8) k/uL Macrocytosis Sodium (137-145) mmol/L Chloride (98-107) mmol/L BUN (9-20) mg/dL Creatinine (0.66-1.25) mg/dL POC Glucose (mg/dL) 139 H 117 H (75-99) mg/dL Calcium (8.4-10.2) mg/dL Magnesium (1.6-2.3) mg/dL Iron 58 L (65-175) ug/dL 07/29/20 07/29/20 Range/Units 06:25 06:25 RBC 2.80 L (4.30-5.90) m/uL Hgb 9.3 L (13.0-17.5) gm/dL Hct 30.3 L (39.0-53.0) % MCV 108.3 H (80.0-100.0) fL MCHC 30.6 L (31.0-37.0) g/dL RDW 15.8 H (11.5-15.5) % Lymphocytes # 0.7 L (1.0-4.8) k/uL Macrocytosis Marked A Sodium 136 L (137-145) mmol/L Chloride 97 L (98-107) mmol/L BUN 73 H (9-20) mg/dL Creatinine 4.63 H (0.66-1.25) mg/dL POC Glucose (mg/dL) (75-99) mg/dL Calcium 8.3 L (8.4-10.2) mg/dL Magnesium 1.5 L (1.6-2.3) mg/dL Iron (65-175) ug/dL Diabetes panel 07/28/20 07/29/20 Range/Units 20:41 06:25 Sodium 136 L (137-145) mmol/L Potassium 4.3 4.5 (3.5-5.1) mmol/L Chloride 97 L (98-107) mmol/L Carbon Dioxide 30 (22-30) mmol/L BUN 73 H (9-20) mg/dL Creatinine 4.63 H (0.66-1.25) mg/dL Glucose 83 (74-99) mg/dL Calcium 8.3 L (8.4-10.2) mg/dL Calcium panel 07/29/20 Range/Units 06:25 Calcium 8.3 L (8.4-10.2) mg/dL Pituitary panel 07/28/20 07/29/20 Range/Units 20:41 06:25 Sodium 136 L (137-145) mmol/L Potassium 4.3 4.5 (3.5-5.1) mmol/L Chloride 97 L (98-107) mmol/L Carbon Dioxide 30 (22-30) mmol/L BUN 73 H (9-20) mg/dL Creatinine 4.63 H (0.66-1.25) mg/dL Glucose 83 (74-99) mg/dL Calcium 8.3 L (8.4-10.2) mg/dL Adrenal panel 07/28/20 07/29/20 Range/Units 20:41 06:25 Sodium 136 L (137-145) mmol/L Potassium 4.3 4.5 (3.5-5.1) mmol/L Chloride 97 L (98-107) mmol/L Carbon Dioxide 30 (22-30) mmol/L BUN 73 H (9-20) mg/dL Creatinine 4.63 H (0.66-1.25) mg/dL Glucose 83 (74-99) mg/dL Calcium 8.3 L (8.4-10.2) mg/dL Assessment and Plan Assessment: Impression: Gross hematuria acute and chronic probably secondary to prostate bleeding. Urine retention secondary to blood clots. Chronic renal failure Recommendations: Leave the catheter in place until the urine clears. At that time the catheter can be removed for a voiding trial. He will need to follow-up with his urologist for his persistent gross hematuria.
[2020-07-29] MEDS: METOPROLOL TARTRATE 25 MG TAB PO SCH ×2 (11:45→20:12)
[2020-07-29] MEDS: SODIUM BICARBONATE TAB 650 MG TAB PO SCH ×2 (11:45→20:13)
[2020-07-29] MEDS: FUROSEMIDE 10 MG/ML 10 ML VIAL IV SCH ×2 (11:46→20:12)
[2020-07-29] MEDS: MAGNESIUM SULFATE-D5W PMX 1 GM in DEXTROSE/WATER 1 100ML.BAG IVPB SCH ×2 (11:46→13:05)
[2020-07-29] MEDS: allopurinoL 100 MG TAB PO SCH (11:46)
--- NOTE | 2020-07-29 13:23 | P.PN ---
Progress Note - Text Progress Note Date: 07/29/20 Chief Complaint: Tired History of presenting complaint: This is a very pleasant 84-year-old patient, follows with Dr. Karla Soto. Chronic stable medical conditions include GERD, hypertension, obstructive arthritis, peripheral neuropathy, bilateral foot drop. Patient has advancing renal function. He was due to see vascular for a hemodialysis catheter placement. Symptoms have gotten worse. Appetite has gone down. Gets easily short of breath. Patient still able to make urine. Patient initially presented to [facility]. And he was transferred here for vascular access. Vascular surgery's been consulted. Patient's son is at the bedside. No fever no chills. Tired. No chest pain. Patient had TURP about 6 months ago and has had intermittent bleeding since then. Admitted with end-stage kidney disease, worsening symptomatic, pulmonary edema, protein calorie malnutrition, anemia. Hemodialysis access was placed, right IJ by Dr. Paniagua. Started on hemodialysis. Has a Paniagua catheter with some hematuria Today: . Feels a shade better. Diet. Getting hemodialysis today. Paniagua catheter. Oral intake fair. Review of systems: Was done for constitutional, cardiovascular, GI, pulmonary. relevant finding as above Active Medications Acetaminophen (Acetaminophen Tab 325 Mg Tab) 650 mg PO Q6HR PRN PRN Reason: Mild Pain or Fever > 100.5 Al Hydroxide/Mg Hydroxide (Mag Hydrox/Al Hydrox/Simeth 30 Ml Cup) 15 ml PO Q6HR PRN PRN Reason: Indigestion Allopurinol (Allopurinol 100 Mg Tab) 100 mg PO DAILY [facility] Last Admin: 07/29/20 11:46 Dose: 100 mg Documented by: Calcium Acetate (Calcium Acetate 667 Mg Tab) 667 mg PO TID-W/MEALS [facility] Last Admin: 07/29/20 12:35 Dose: 667 mg Documented by: Calcium Carbonate/Glycine (Calcium Carbonate 500 Mg Chewable) 1,000 mg PO Q4HR PRN PRN Reason: Dyspepsia Darbepoetin Karlos (Darbepoetin Karlos 40 Mcg/0.4 Ml Syringe) 40 mcg SQ Q7D [facility] Last Admin: 07/29/20 12:35 Dose: 40 mcg Documented by: Enoxaparin Sodium (Enoxaparin 40 Mg/0.4 Ml Syringe) 40 mg SQ DAILY [facility] Last Admin: 07/29/20 09:22 Dose: Not Given Documented by: Furosemide (Furosemide 10 Mg/Ml 10 Ml Vial) 80 mg IV Q12HR [facility] Last Admin: 07/29/20 11:46 Dose: 80 mg Documented by: Gabapentin (Gabapentin 100 Mg Cap) 100 mg PO HS [facility] Last Admin: 07/28/20 18:48 Dose: Not Given Documented by: Lactulose (Lactulose 20 Gm/30 Ml Cup) 20 gm PO DAILY PRN PRN Reason: Constipation Melatonin (Melatonin 3 Mg Tablet) 3 mg PO HS PRN PRN Reason: Insomnia Metoprolol Tartrate (Metoprolol Tartrate 25 Mg Tab) 25 mg PO BID [facility] Last Admin: 07/29/20 11:45 Dose: 25 mg Documented by: Naloxone HCl (Naloxone 0.4 Mg/Ml 1 Ml Vial) 0.2 mg IV Q2M PRN PRN Reason: Opioid Reversal Ondansetron HCl (Ondansetron 4 Mg/2 Ml Vial) 4 mg IVP Q8HR PRN PRN Reason: Nausea And Vomiting Pantoprazole Sodium (Pantoprazole 40 Mg Tablet) 40 mg PO AC-BRKFST [facility] Last Admin: 07/29/20 06:39 Dose: 40 mg Documented by: Sodium Bicarbonate (Sodium Bicarbonate Tab 650 Mg Tab) 650 mg PO BID [facility] Last Admin: 07/29/20 11:45 Dose: 650 mg Documented by: Past medical history to include: GERD, hypertension, osteoarthritis, kidney failure, lung cancer with partial lobectomy, treated with chemotherapy causing bilateral foot drop and peripheral neuropathy, BPH Social history: Patient stopped smoking cigarettes 45 years ago. No alcohol. Lives alone. Family history: Cancer Physical examination: VITAL SIGNS: 97.1, 89, 20, 131/65, 87% on room air GENERAL: reclining in bed, tired. Right chest wall hemodialysis catheter EYES: [Pupils equal. Conjunctiva pale. NECK: JVD not raised; masses not palpable. HEART: First and second heart sounds are normal; no edema. LUNGS: Respiratory rate normal; clear to auscultation. MUSCULAR skeletal: Evidence of OA. Decreased muscle mass. Bony prominences. ABDOMEN: Soft, nontender, liver spleen not palpable, no masses palpable. PSYCH: Alert and oriented x3; mood and affect normal. NEUROLOGICAL: [Cranial nerves grossly intact; no facial asymmetry, bilateral foot drop with the shoe brace Investigations: July 29: Obese 8.2 hemoglobin 9.3 potassium 4.5 BUN 73 creatinine 4.63 iron58 TIBC 269 ferritin 182 Hepatitis B surface antigen, hepatitis B surface antibody, hepatitis B surface antibody quantitative: Less than 3.5, hepatitis B core total antibody: All nonreactive 2-D echocardiogram: Here 50-55%. Moderate to severe aortic stenosis. Moderate TR. WBC 5.4 hemoglobin 10.2 platelets 138 Potassium 5.6 BUN 110 creatinine 5.82 phosphorus 6 EKG tracing personally reviewed by me-normal sinus rhythm, PVC, nonspecific T- wave changes Chest x-ray film personally reviewed by me-fluid overload Assessment and plan: -End-stage renal disease, progressive, symptomatic-slow to respond Dialysis catheter placed July 28:. Started hemodialysis -Medical asthenia multifactorial: Slow to respond Expect to respond with better oral intake and hemodialysis -Anemia of chronic kidney disease Follow H&H -Persistent hematuria following TURP 6 months ago. Patient seen by Dr. Michael. Patient is to follow-up with his own urologist -Hyperphosphatemia Secondary to renal failure. 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 -Moderate to severe aortic stenosis, non-rheumatic Consult cardiology -Secondary pulmonary hypertension, possibly secondary to aortic stenosis Follow clinically -Moderate protein calorie malnutrition Consult dietitian Continue current medication treatment plan. Care was discussed with the patient. Questions answered.
[2020-07-29] MEDS: GABAPENTIN 100 MG CAP PO SCH (20:12)
[2020-07-30] MEDS: PANTOPRAZOLE 40 MG TABLET PO SCH (06:25)
[2020-07-30] MEDS: CALCIUM ACETATE 667 MG TAB PO SCH ×3 (06:25→17:43)
--- NOTE | 2020-07-30 08:15 | P.PN ---
Subjective Patient is seen in follow-up for end-stage renal disease. Started on hemodialysis July 28. Has been tolerating dialysis well. Dyspnea and edema b oth improved. Vital signs are stable. General: The patient appeared well nourished and normally developed. HEENT: Head exam is unremarkable. Neck is without jugular venous distension. LUNGS: Breath sounds decreased. HEART: Rate and Rhythm are regular. ABDOMEN: Soft, no distension. EXTREMITITES: 1+ edema in ankles. Objective - Vital Signs Vital signs: Vital Signs Temp 98.0 F 07/29/20 23:13 Pulse 87 07/30/20 04:00 Resp 18 07/30/20 04:00 BP 99/66 07/30/20 04:00 Pulse Ox 94 L 07/30/20 04:00 Intake & Output 07/29/20 07/30/20 07/30/20 18:59 06:59 18:59 Intake Total 720 360 240 Output Total 1800 650 Balance -1080 -290 240 Weight 54.5 kg Intake: Oral 720 360 240 Output: Urine 300 650 Hemodialysis 1500 Other: Voiding Method Urinal Urinal - Labs CBC & Chem 7: 07/29/20 06:25 07/29/20 06:25 Labs: Abnormal Lab Results - Last 24 Hours (Table) 07/29/20 Range/Units 06:25 Lymphocytes # 0.7 L (1.0-4.8) k/uL Assessment and Plan Plan: Assessment: 1. End-stage renal disease secondary to nephrosclerosis as well as underlying GN as he does have proteinuria. Kidney biopsy wasn't done as his GFR has been quite depressed and patient had also refused kidney biopsy outpatient. Creatinine 5.89 on admission. Started on hemodialysis July 28. 2. Hyperkalemia secondary to chronic kidney disease. Improved postdialysis. 3. Dyspnea. Chest x-ray suggestive of volume overload. Improved with ultrafiltration and diuresis. 4. Anemia of chronic kidney disease. Maintained on Aranesp. Also noted to be mildly iron deficient - status post IV iron. 5. Severe aortic stenosis and moderate tricuspid regurgitation. 6. Hematuria likely from prostate bleeding. Has a Paniagua catheter. Urology following. Plan: Maintain IV Lasix. Hemodialysis today. supplier development manager to set up outpatient hemodialysis.
[2020-07-30] MEDS ORDERED: ENOXAPARIN 30 MG/0.3 ML SYRINGE SQ SCH (09:00)
[2020-07-30] MEDS: MIDODRINE 5 MG TAB PO PRN (10:25)
--- NOTE | 2020-07-30 11:47 | PN ---
PROGRESS NOTE Mr. Unger was admitted with end-stage renal disease and had dialysis. He feels better. Breathing is easier. He has a moderate to severe aortic stenosis for which I am recommending medical therapy but once he is discharged from the hospital, I will see him in the office in 2 weeks and we will consider a transesophageal echo and coronary angiography with intention of aortic valve intervention. But with dialysis itself, he has shown improvement. His breathing is easier denies any chest pain. Vitals are stable. JVD 1 cm. No carotid bruit. Ejection systolic murmur 3/6. Lungs are clear. Improved air entry. Abdomen is soft. Lower extremities reveal diminished pulses. IMPRESSION: 1. [id number] aortic stenosis. 2. End-stage renal disease on hemodialysis, just started. 3. Hypertension. RECOMMENDATIONS: The patient can be discharged on current medications. I will see him in 2 weeks and we will consider outpatient assessment of aortic valve. MMODL / IJN: [id number] /
[2020-07-30] MEDS ORDERED: PHYTONADIONE 10 MG in SODIUM CHLORIDE 0.9% 50 ML IVPB ONE (12:00)
[2020-07-30 12:24] LABS: Basophils % (A) 0 %; Eosinophils # (A) 0.1 k/uL (0-0.7); Eosinophils % (A) 1 %; HCT 25.2 % (39.0-53.0); Hypochromasia Moderate; Lymphocytes # (A) 0.6 k/uL (1.0-4.8); Lymphocytes % (A) 8 %; MCHC 30.8 g/dL (31.0-37.0); MCV 107.2 fL (80.0-100.0); Macrocytosis Marked; Monocytes # (A) 0.4 k/uL (0-1.0); Monocytes % (A) 5 %; Neutrophils # (A) 6.1 k/uL (1.3-7.7); Neutrophils % (A) 84 %; Platelet Count 120 k/uL (150-450); RBC 2.35 m/uL (4.30-5.90); RDW 15.7 % (11.5-15.5); WBC 7.3 k/uL (3.8-10.6)
[2020-07-30 12:32] LABS: INR 1.1 (<1.2); Prothrombin Time 11.3 sec (9.0-12.0)
[2020-07-30 12:33] LABS: HGB 7.7 gm/dL (13.0-17.5)
--- NOTE | 2020-07-30 13:03 | P.PN ---
Subjective Progress Note Date: 07/30/20 The patient is in the hospital with congestive failure and acute renal failure. He is on dialysis. The patient has a urologic problem. He had a TURP by Dr. Fierro at [facility] 6 months ago. He has intermittent bleeding ever since. It is been treated with antibiotics. He again is bleeding in this hospitalization a. The patient went into retention due to clots. In evaluating the blood in the urinate is old blood. There does not appear to be any fresh bleeding. I will continue to observe the patient. Preferably if he continues to have intermittent bleeding he would be better treated by Dr. Fierro who did his original surgery. If he has continuous bleeding then I will have to address this while he is in this hospitalization. The bleeding at present appears to be old blood not fresh bleeding. Objective - Vital Signs Vital signs: Vital Signs Temp 98.2 F 07/30/20 11:29 Pulse 99 07/30/20 11:29 Resp 18 07/30/20 11:29 BP 105/55 07/30/20 11:29 Pulse Ox 95 07/30/20 11:29 Intake & Output 07/29/20 07/30/20 07/30/20 18:59 06:59 18:59 Intake Total 720 360 240 Output Total 1800 650 Balance -1080 -290 240 Weight 54.5 kg Intake: Oral 720 360 240 Output: Urine 300 650 Hemodialysis 1500 Other: Voiding Method Urinal Urinal - Labs CBC & Chem 7: 07/30/20 11:52 07/29/20 06:25 Labs: Abnormal Lab Results - Last 24 Hours (Table) 07/30/20 Range/Units 11:52 RBC 2.35 L (4.30-5.90) m/uL Hgb 7.7 L D (13.0-17.5) gm/dL Hct 25.2 L (39.0-53.0) % MCV 107.2 H (80.0-100.0) fL MCHC 30.8 L (31.0-37.0) g/dL RDW 15.7 H (11.5-15.5) % Plt Count 120 L (150-450) k/uL Lymphocytes # 0.6 L (1.0-4.8) k/uL Macrocytosis Marked A
--- NOTE | 2020-07-30 13:23 | P.PN ---
Progress Note - Text Progress Note Date: 07/30/20 Chief Complaint: Tired History of presenting complaint: This is a very pleasant 84-year-old patient, follows with Dr. Karla Soto. Chronic stable medical conditions include GERD, hypertension, obstructive arthritis, peripheral neuropathy, bilateral foot drop. Patient has advancing renal function. He was due to see vascular for a hemodialysis catheter placement. Symptoms have gotten worse. Appetite has gone down. Gets easily short of breath. Patient still able to make urine. Patient initially presented to [facility]. And he was transferred here for vascular access. Vascular surgery's been consulted. Patient's son is at the bedside. No fever no chills. Tired. No chest pain. Patient had TURP about 6 months ago and has had intermittent bleeding since then. Admitted with end-stage kidney disease, worsening symptomatic, pulmonary edema, protein calorie malnutrition, anemia. Hemodialysis access was placed, right IJ by Dr. Paniagua. Started on hemodialysis. Has a Paniagua catheter with hematuria Today: Oral intake is improved. Breathing a bit better. Blood in the Paniagua catheter. Some bleeding around the dialysis catheter site. Tired Review of systems: Was done for constitutional, cardiovascular, GI, pulmonary. relevant finding as above Active Medications Acetaminophen (Acetaminophen Tab 325 Mg Tab) 650 mg PO Q6HR PRN PRN Reason: Mild Pain or Fever > 100.5 Al Hydroxide/Mg Hydroxide (Mag Hydrox/Al Hydrox/Simeth 30 Ml Cup) 15 ml PO Q6HR PRN PRN Reason: Indigestion Allopurinol (Allopurinol 100 Mg Tab) 100 mg PO DAILY [facility] Last Admin: 07/29/20 11:46 Dose: 100 mg Documented by: Calcium Acetate (Calcium Acetate 667 Mg Tab) 667 mg PO TID-W/MEALS [facility] Last Admin: 07/30/20 06:25 Dose: 667 mg Documented by: Calcium Carbonate/Glycine (Calcium Carbonate 500 Mg Chewable) 1,000 mg PO Q4HR PRN PRN Reason: Dyspepsia Darbepoetin Karlos (Darbepoetin Karlos 40 Mcg/0.4 Ml Syringe) 40 mcg SQ Q7D [facility] Last Admin: 07/29/20 12:35 Dose: 40 mcg Documented by: Furosemide (Furosemide 10 Mg/Ml 10 Ml Vial) 80 mg IV Q12HR [facility] Last Admin: 07/29/20 20:12 Dose: 80 mg Documented by: Gabapentin (Gabapentin 100 Mg Cap) 100 mg PO HS [facility] Last Admin: 07/29/20 20:12 Dose: 100 mg Documented by: Lactulose (Lactulose 20 Gm/30 Ml Cup) 20 gm PO DAILY PRN PRN Reason: Constipation Melatonin (Melatonin 3 Mg Tablet) 3 mg PO HS PRN PRN Reason: Insomnia Metoprolol Tartrate (Metoprolol Tartrate 25 Mg Tab) 25 mg PO BID [facility] Last Admin: 07/29/20 20:12 Dose: 25 mg Documented by: Midodrine (Midodrine 5 Mg Tab) 10 mg PO TID PRN PRN Reason: Blood Pressure - Low Last Admin: 07/30/20 10:25 Dose: 10 mg Documented by: Naloxone HCl (Naloxone 0.4 Mg/Ml 1 Ml Vial) 0.2 mg IV Q2M PRN PRN Reason: Opioid Reversal Ondansetron HCl (Ondansetron 4 Mg/2 Ml Vial) 4 mg IVP Q8HR PRN PRN Reason: Nausea And Vomiting Pantoprazole Sodium (Pantoprazole 40 Mg Tablet) 40 mg PO AC-BRKFST [facility] Last Admin: 07/30/20 06:25 Dose: 40 mg Documented by: Phytonadione (Phytonadione Oral 5 Mg/5 Ml Oral.Syrg) 10 mg PO DAILY [facility] Sodium Bicarbonate (Sodium Bicarbonate Tab 650 Mg Tab) 650 mg PO BID [facility] Last Admin: 07/29/20 20:13 Dose: 650 mg Documented by: Past medical history to include: GERD, hypertension, osteoarthritis, kidney failure, lung cancer with partial lobectomy, treated with chemotherapy causing bilateral foot drop and peripheral neuropathy, BPH Social history: Patient stopped smoking cigarettes 45 years ago. No alcohol. Lives alone. Family history: Cancer Physical examination: VITAL SIGNS: 98.2, 99, 18, 10 5 x 55, 95% room air GENERAL: reclining in bed, tired. Right chest wall hemodialysis catheter. Some bleeding around the entry site EYES: [Pupils equal. Conjunctiva pale. NECK: JVD not raised; masses not palpable. HEART: First and second heart sounds are normal; no edema. LUNGS: Respiratory rate normal; decreased breath sound. MUSCULAR skeletal: Evidence of OA. Decreased muscle mass. Bony prominences. ABDOMEN: Soft, nontender, liver spleen not palpable, no masses palpable. Paniagua catheter.-dark blood PSYCH: Alert and oriented x3; mood and affect normal. NEUROLOGICAL: [Cranial nerves grossly intact; no facial asymmetry, bilateral foot drop with the shoe brace Investigations: July 30: Pro time 11.3 hemoglobin 7.7 July 29: Obese 8.2 hemoglobin 9.3 potassium 4.5 BUN 73 creatinine 4.63 iron58 TIBC 269 ferritin 182 Hepatitis B surface antigen, hepatitis B surface antibody, hepatitis B surface antibody quantitative: Less than 3.5, hepatitis B core total antibody: All nonreactive 2-D echocardiogram: Here 50-55%. Moderate to severe aortic stenosis. Moderate TR. WBC 5.4 hemoglobin 10.2 platelets 138 Potassium 5.6 BUN 110 creatinine 5.82 phosphorus 6 EKG tracing personally reviewed by me-normal sinus rhythm, PVC, nonspecific T- wave changes Chest x-ray film personally reviewed by me-fluid overload Assessment and plan: -End-stage renal disease, progressive, symptomatic-slow to respond Dialysis catheter placed July 28:. Started hemodialysis -Medical asthenia multifactorial: Slow to respond Expect to respond with better oral intake and hemodialysis -Anemia of chronic kidney disease Follow H&H -Acute blood loss anemia from hematuria Follow H&H -Persistent hematuria following TURP 6 months ago. Patient seen by Dr. Michael. Patient is to follow-up with his own urologist -Hyperphosphatemia Secondary to renal failure. 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 -Moderate to severe aortic stenosis, non-rheumatic Consult cardiology -Secondary pulmonary hypertension, possibly secondary to aortic stenosis Follow clinically -Moderate protein calorie malnutrition Consult dietitian Patient is hypotensive and hemoglobin 7.7. Bleeding from the dialysis access site and hematuria. We'll transfuse 1 unit of blood. Discussed with Dr. Michael from urology. Patient ideally should've gone to his urologist, but in case he continues to bleed lead to have intervention done while hospitalized. We'll give some vitamin K to see if it will offset bleeding
[2020-07-30] MEDS: FUROSEMIDE 10 MG/ML 10 ML VIAL IV SCH ×2 (13:54→20:17)
[2020-07-30] MEDS: SODIUM BICARBONATE TAB 650 MG TAB PO SCH ×2 (14:51→20:17)
[2020-07-30] MEDS: allopurinoL 100 MG TAB PO SCH (14:51)
[2020-07-30] MEDS: METOPROLOL TARTRATE 25 MG TAB PO SCH ×2 (14:51→20:16)
[2020-07-30] MEDS: GABAPENTIN 100 MG CAP PO SCH (20:17)
[2020-07-31] MEDS: CALCIUM ACETATE 667 MG TAB PO SCH ×3 (06:36→16:27)
[2020-07-31] MEDS: PANTOPRAZOLE 40 MG TABLET PO SCH (06:36)
--- NOTE | 2020-07-31 09:01 | P.PN ---
Subjective Progress Note Date: 07/31/20 THe patient is in the hospital with arf/crf. He is being dialyzed. He had a history of laser turp by another urologist 6 mos ago with recurrent bleeding ever since. He has old blood in the catheter. Ideally he'd be best served by going to his urologist but if he continues to bleed I may have to do cysto with evacuation of clot and control of bleeding if identified. I will see how things go in the next 24 hours Objective - Vital Signs Vital signs: Vital Signs Temp 97.7 F 07/31/20 07:44 Pulse 88 07/31/20 07:44 Resp 20 07/31/20 07:44 BP 121/72 07/31/20 07:44 Pulse Ox 96 07/31/20 07:44 Intake & Output 07/30/20 07/31/20 07/31/20 18:59 06:59 18:59 Intake Total 720 410 180 Output Total 1800 450 Balance -1080 -40 180 Weight 53.5 kg Intake: IV 100 0.9 100 Oral 720 180 Blood Product 0 310 Rc Cpda-1 Unit 0 310 [id number] Output: Urine 300 450 Hemodialysis 1500 Other: Voiding Method Indwelling Catheter Indwelling Catheter - Labs CBC & Chem 7: 07/30/20 11:52 07/29/20 06:25 Labs: Abnormal Lab Results - Last 24 Hours (Table) 07/30/20 07/30/20 Range/Units 11:52 14:00 RBC 2.35 L (4.30-5.90) m/uL Hgb 7.7 L D (13.0-17.5) gm/dL Hct 25.2 L (39.0-53.0) % MCV 107.2 H (80.0-100.0) fL MCHC 30.8 L (31.0-37.0) g/dL RDW 15.7 H (11.5-15.5) % Plt Count 120 L (150-450) k/uL Lymphocytes # 0.6 L (1.0-4.8) k/uL Macrocytosis Marked A Crossmatch See Detail
[2020-07-31 09:21] LABS: Anisocytosis Slight; Basophils % (A) 1 %; Eosinophils # (A) 0.1 k/uL (0-0.7); Eosinophils % (A) 2 %; HCT 29.7 % (39.0-53.0); Hypochromasia Moderate; Lymphocytes # (A) 0.7 k/uL (1.0-4.8); Lymphocytes % (A) 11 %; MCH 31.9 pg (25.0-35.0); MCHC 30.4 g/dL (31.0-37.0); MCV 104.8 fL (80.0-100.0); Macrocytosis Moderate; Monocytes # (A) 0.5 k/uL (0-1.0); Monocytes % (A) 7 %; Neutrophils # (A) 4.8 k/uL (1.3-7.7); Neutrophils % (A) 76 %; Platelet Count 118 k/uL (150-450); RBC 2.83 m/uL (4.30-5.90); RDW 17.6 % (11.5-15.5); WBC 6.3 k/uL (3.8-10.6)
--- NOTE | 2020-07-31 09:22 | P.PN ---
Subjective Patient is seen in follow-up for end-stage renal disease. Started on hemodialysis July 28. Has been tolerating dialysis well. Dyspnea and edema b oth improved. Continues to have hematuria. Vital signs are stable. General: The patient appeared well nourished and normally developed. HEENT: Head exam is unremarkable. Neck is without jugular venous distension. LUNGS: Breath sounds decreased. HEART: Rate and Rhythm are regular. ABDOMEN: Soft, no distension. EXTREMITITES: 1+ edema in ankles. Objective - Vital Signs Vital signs: Vital Signs Temp 97.7 F 07/31/20 07:44 Pulse 88 07/31/20 07:44 Resp 20 07/31/20 07:44 BP 121/72 07/31/20 07:44 Pulse Ox 96 07/31/20 07:44 Intake & Output 07/30/20 07/31/20 07/31/20 18:59 06:59 18:59 Intake Total 720 410 180 Output Total 1800 450 Balance -1080 -40 180 Weight 53.5 kg Intake: IV 100 0.9 100 Oral 720 180 Blood Product 0 310 Rc Cpda-1 Unit 0 310 [id number] Output: Urine 300 450 Hemodialysis 1500 Other: Voiding Method Indwelling Catheter Indwelling Catheter - Labs CBC & Chem 7: 07/30/20 11:52 07/29/20 06:25 Labs: Abnormal Lab Results - Last 24 Hours (Table) 07/30/20 07/30/20 Range/Units 11:52 14:00 RBC 2.35 L (4.30-5.90) m/uL Hgb 7.7 L D (13.0-17.5) gm/dL Hct 25.2 L (39.0-53.0) % MCV 107.2 H (80.0-100.0) fL MCHC 30.8 L (31.0-37.0) g/dL RDW 15.7 H (11.5-15.5) % Plt Count 120 L (150-450) k/uL Lymphocytes # 0.6 L (1.0-4.8) k/uL Macrocytosis Marked A Crossmatch See Detail Assessment and Plan Plan: Assessment: 1. End-stage renal disease secondary to nephrosclerosis as well as underlying GN as he does have proteinuria. Kidney biopsy wasn't done as his GFR has been quite depressed and patient had also refused kidney biopsy outpatient. Creatinine 5.89 on admission. Started on hemodialysis July 28. 2. Hyperkalemia secondary to chronic kidney disease. Improved postdialysis. 3. Dyspnea. Chest x-ray suggestive of volume overload. Improved with ultrafiltration and diuresis. 4. Anemia of chronic kidney disease. Maintained on Aranesp. Also noted to be mildly iron deficient - status post IV iron. 5. Severe aortic stenosis and moderate tricuspid regurgitation. 6. Hematuria from prostate bleeding. Has a Paniagua catheter. Urology following. May need cystoscopy this admission. Plan: Change Lasix to 80 mg orally twice daily. Tolerating dialysis well. Next treatment on Monday. dairy manager to set up outpatient hemodialysis. Stop oral bicarbonate.
[2020-07-31 09:35] LABS: Calcium 8.2 mg/dL (8.4-10.2); Potassium 3.8 mmol/L (3.5-5.1)
[2020-07-31] MEDS: FUROSEMIDE 10 MG/ML 10 ML VIAL IV SCH (09:39)
[2020-07-31] MEDS: MIDODRINE 5 MG TAB PO PRN (09:45)
[2020-07-31] MEDS: PHYTONADIONE ORAL 5 MG/5 ML ORAL.SYRG PO SCH (11:58)
[2020-07-31] MEDS: allopurinoL 100 MG TAB PO SCH (11:58)
[2020-07-31] MEDS: METOPROLOL TARTRATE 25 MG TAB PO SCH ×2 (11:58→20:34)
[2020-07-31] MEDS: SODIUM BICARBONATE TAB 650 MG TAB PO SCH (12:04)
--- NOTE | 2020-07-31 13:10 | P.PN ---
Progress Note - Text Progress Note Date: 07/31/20 Chief Complaint: Tired History of presenting complaint: This is a very pleasant 84-year-old patient, follows with Dr. Karla Soto. Chronic stable medical conditions include GERD, hypertension, obstructive arthritis, peripheral neuropathy, bilateral foot drop. Patient has advancing renal function. He was due to see vascular for a hemodialysis catheter placement. Symptoms have gotten worse. Appetite has gone down. Gets easily short of breath. Patient still able to make urine. Patient initially presented to [facility]. And he was transferred here for vascular access. Vascular surgery's been consulted. Patient's son is at the bedside. No fever no chills. Tired. No chest pain. Patient had TURP about 6 months ago and has had intermittent bleeding since then. Admitted with end-stage kidney disease-worsening symptomatic, pulmonary edema, protein calorie malnutrition, anemia. Hemodialysis access was placed, right IJ by Dr. Paniagua. Started on hemodialysis. Has a Paniagua catheter with hematuria. Patient had TURP done a few weeks ago. Has been having intermittent bleeding since then. Started to eat better. Breathing improved. Patient did drop his hemoglobin. Received a unit of PRBC Today: Still having significant hematuria. Received a unit of blood yesterday. Tired. Oral intake fair Review of systems: Was done for constitutional, cardiovascular, GI, pulmonary. relevant finding as above Active Medications Acetaminophen (Acetaminophen Tab 325 Mg Tab) 650 mg PO Q6HR PRN PRN Reason: Mild Pain or Fever > 100.5 Al Hydroxide/Mg Hydroxide (Mag Hydrox/Al Hydrox/Simeth 30 Ml Cup) 15 ml PO Q6HR PRN PRN Reason: Indigestion Allopurinol (Allopurinol 100 Mg Tab) 100 mg PO DAILY [facility] Last Admin: 07/31/20 11:58 Dose: 100 mg Documented by: Calcium Acetate (Calcium Acetate 667 Mg Tab) 667 mg PO TID-W/MEALS [facility] Last Admin: 07/31/20 11:58 Dose: 667 mg Documented by: Calcium Carbonate/Glycine (Calcium Carbonate 500 Mg Chewable) 1,000 mg PO Q4HR PRN PRN Reason: Dyspepsia Darbepoetin Karlos (Darbepoetin Karlos 40 Mcg/0.4 Ml Syringe) 40 mcg SQ Q7D [facility] Last Admin: 07/29/20 12:35 Dose: 40 mcg Documented by: Furosemide (Furosemide 80 Mg Tab) 80 mg PO BID@0900,1600 [facility] Gabapentin (Gabapentin 100 Mg Cap) 100 mg PO HS [facility] Last Admin: 07/30/20 20:17 Dose: Not Given Documented by: Lactulose (Lactulose 20 Gm/30 Ml Cup) 20 gm PO DAILY PRN PRN Reason: Constipation Melatonin (Melatonin 3 Mg Tablet) 3 mg PO HS PRN PRN Reason: Insomnia Metoprolol Tartrate (Metoprolol Tartrate 25 Mg Tab) 25 mg PO BID [facility] Last Admin: 07/31/20 11:58 Dose: 25 mg Documented by: Midodrine (Midodrine 5 Mg Tab) 10 mg PO TID PRN PRN Reason: Blood Pressure - Low Last Admin: 07/31/20 09:45 Dose: 10 mg Documented by: Naloxone HCl (Naloxone 0.4 Mg/Ml 1 Ml Vial) 0.2 mg IV Q2M PRN PRN Reason: Opioid Reversal Ondansetron HCl (Ondansetron 4 Mg/2 Ml Vial) 4 mg IVP Q8HR PRN PRN Reason: Nausea And Vomiting Pantoprazole Sodium (Pantoprazole 40 Mg Tablet) 40 mg PO AC-BRKFST [facility] Last Admin: 07/31/20 06:36 Dose: 40 mg Documented by: Phytonadione (Phytonadione Oral 5 Mg/5 Ml Oral.Syrg) 10 mg PO DAILY [facility] Last Admin: 07/31/20 11:58 Dose: 10 mg Documented by: Past medical history to include: GERD, hypertension, osteoarthritis, kidney failure, lung cancer with partial lobectomy, treated with chemotherapy causing bilateral foot drop and peripheral neuropathy, BPH Social history: Patient stopped smoking cigarettes 45 years ago. No alcohol. Lives alone. Family history: Cancer Physical examination: VITAL SIGNS: 97.6, 92, 18, 10 9 x 6 52, 98% room air GENERAL: reclining in bed, tired. Right chest wall hemodialysis catheter. EYES: [Pupils equal. Conjunctiva pale. NECK: JVD not raised; masses not palpable. HEART: First and second heart sounds are normal; no edema. LUNGS: Respiratory rate normal; decreased breath sound. MUSCULAR skeletal: Evidence of OA. Decreased muscle mass. Bony prominences. ABDOMEN: Soft, nontender, liver spleen not palpable, no masses palpable. Paniagua catheter.-Bloody urine PSYCH: Alert and oriented x3; mood and affect normal. NEUROLOGICAL: [Cranial nerves grossly intact; no facial asymmetry, bilateral foot drop with the shoe brace Investigations: July 31: Hemoglobin 9 platelets 118 potassium 3.8 creatinine 3.09 July 30: Pro time 11.3 hemoglobin 7.7 July 29: Obese 8.2 hemoglobin 9.3 potassium 4.5 BUN 73 creatinine 4.63 iron58 TIBC 269 ferritin 182 Hepatitis B surface antigen, hepatitis B surface antibody, hepatitis B surface antibody quantitative: Less than 3.5, hepatitis B core total antibody: All nonreactive 2-D echocardiogram: Here 50-55%. Moderate to severe aortic stenosis. Moderate TR. WBC 5.4 hemoglobin 10.2 platelets 138 Potassium 5.6 BUN 110 creatinine 5.82 phosphorus 6 EKG tracing personally reviewed by me-normal sinus rhythm, PVC, nonspecific T- wave changes Chest x-ray film personally reviewed by me-fluid overload Assessment and plan: -End-stage renal disease, progressive, symptomatic- Dialysis catheter placed July 28:. Started hemodialysis -Medical asthenia multifactorial: Slow to respond Expect to respond with better oral intake and hemodialysis -Anemia of chronic kidney disease Follow H&H -Acute blood loss anemia from hematuria Patient received 1 unit of blood. Follow H&H -Persistent hematuria following TURP 6 months ago.-Slow to respond Patient seen by Dr. Michael. Patient likely needs cystoscopy with cauterization -Hyperphosphatemia Secondary to renal failure. 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 We'll await urology to do cystoscopy with possible cauterization for significant hematuria. Discussed with the patient.
[2020-07-31] MEDS: FUROSEMIDE 80 MG TAB PO SCH (16:26)
[2020-07-31] MEDS: GABAPENTIN 100 MG CAP PO SCH (20:34)
[2020-08-01] MEDS: CALCIUM ACETATE 667 MG TAB PO SCH ×3 (06:54→16:04)
[2020-08-01] MEDS: PANTOPRAZOLE 40 MG TABLET PO SCH (06:55)
--- NOTE | 2020-08-01 08:19 | P.PN ---
Subjective Progress Note Date: 08/01/20 The patient has been evaluated for gross hematuria which is recurrent as well as urine retention. He is in the hospital with congestive failure and acute on chronic renal failure. The urine appears to be clearing. Most of the blood in the last couple days was old blood draining out of the catheter. At this point in time surgical intervention does not appear to be required. I'll observe him again over the next 24 hours. Assuming the urine clears he'll need to follow-up with his urologist that did his prostate surgery for further assessment Objective - Vital Signs Vital signs: Vital Signs Temp 98.2 F 08/01/20 04:00 Pulse 78 08/01/20 04:00 Resp 18 08/01/20 04:00 BP 109/57 08/01/20 04:00 Pulse Ox 97 08/01/20 04:00 Intake & Output 07/31/20 08/01/20 08/01/20 18:59 06:59 18:59 Intake Total 540 Output Total 3500 250 Balance -2960 -250 Weight 53.5 kg 48.8 kg Intake: Oral 540 Output: Urine 1000 250 Hemodialysis 2500 Other: Voiding Method Indwelling Catheter # Bowel Movements 1 1 - Labs CBC & Chem 7: 07/31/20 08:30 07/31/20 08:30 Labs: Abnormal Lab Results - Last 24 Hours (Table) 07/31/20 07/31/20 Range/Units 08:30 08:30 RBC 2.83 L (4.30-5.90) m/uL Hgb 9.0 L (13.0-17.5) gm/dL Hct 29.7 L (39.0-53.0) % MCV 104.8 H (80.0-100.0) fL MCHC 30.4 L (31.0-37.0) g/dL RDW 17.6 H (11.5-15.5) % Plt Count 118 L (150-450) k/uL Lymphocytes # 0.7 L (1.0-4.8) k/uL Carbon Dioxide 34 H (22-30) mmol/L BUN 39 H (9-20) mg/dL Creatinine 3.09 H (0.66-1.25) mg/dL Glucose 123 H (74-99) mg/dL Calcium 8.2 L (8.4-10.2) mg/dL
[2020-08-01] MEDS: METOPROLOL TARTRATE 25 MG TAB PO SCH ×2 (09:21→20:04)
[2020-08-01] MEDS: FUROSEMIDE 80 MG TAB PO SCH ×3 (09:21→16:04)
[2020-08-01] MEDS: allopurinoL 100 MG TAB PO SCH (09:21)
[2020-08-01] MEDS ORDERED: FUROSEMIDE 10 MG/ML 10 ML VIAL IV STA (09:26)
[2020-08-01] MEDS: PHYTONADIONE ORAL 5 MG/5 ML ORAL.SYRG PO SCH (09:59)
--- NOTE | 2020-08-01 13:56 | PN ---
PROGRESS NOTE Patient is seen for followup for end-stage renal disease. He is currently comfortable, awake. He is not in any acute distress. The patient is maintained on a Monday, Monday, Monday schedule. He has had hematuria and is being followed by Urology. The hematuria is improving and at this point there are no plans for intervention and patient does follow up with the urologist out of town. PHYSICAL EXAMINATION: On examination today, blood pressure was 109/57, heart rate 78 per minute, he is afebrile. Examination of the heart S1, S2. Examination of the lungs, bilateral breath sounds are heard. Abdomen is soft, nontender. Examination of lower extremities shows no significant edema. LAB: Show hemoglobin 9.0, sodium 138, potassium 3.8, serum creatinine 3.0. ASSESSMENT: 1. End-stage renal disease, started dialysis this admission, maintained on a Monday, Monday, Monday schedule. 2. Volume overload, currently improving. 3. Hematuria from prostatic bleeding, currently with Paniagua catheter with improved hematuria. The patient will follow up with his primary urologist out of town. 4. Anemia of chronic disease, maintained on Aranesp. 5. Severe aortic stenosis, moderate mitral regurgitation. 6. Hyperkalemia, improved post dialysis. PLAN: Next treatment on Monday08/03/2020. Outpatient dialysis to be arranged. MMLOUISL / REBECAN: [id number] /
[2020-08-01] MEDS: GABAPENTIN 100 MG CAP PO SCH (20:05)
--- NOTE | 2020-08-01 20:29 | P.PN ---
Progress Note - Text Progress Note Date: 08/01/20 Chief Complaint: Tired History of presenting complaint: This is a very pleasant 84-year-old patient, follows with Dr. Karla Soto. Chronic stable medical conditions include GERD, hypertension, obstructive arthritis, peripheral neuropathy, bilateral foot drop. Patient has advancing renal function. He was due to see vascular for a hemodialysis catheter placement. Symptoms have gotten worse. Appetite has gone down. Gets easily short of breath. Patient still able to make urine. Patient initially presented to [facility]. And he was transferred here for vascular access. Vascular surgery's been consulted. Patient's son is at the bedside. No fever no chills. Tired. No chest pain. Patient had TURP about 6 months ago and has had intermittent bleeding since then. Admitted with end-stage kidney disease-worsening symptomatic, pulmonary edema, protein calorie malnutrition, anemia. Hemodialysis access was placed, right IJ by Dr. Paniagua. Started on hemodialysis. Has a Paniagua catheter with hematuria. Patient had TURP done a few weeks ago. Has been having intermittent bleeding since then. Started to eat better. Breathing improved. Patient did drop his hemoglobin. Received a unit of PRBC Today: Hematuria is better in terms of does no clots. But still present. Some improvement. Oral intake is good. Review of systems: Was done for constitutional, cardiovascular, GI, pulmonary. relevant finding as above Active Medications Acetaminophen (Acetaminophen Tab 325 Mg Tab) 650 mg PO Q6HR PRN PRN Reason: Mild Pain or Fever > 100.5 Last Admin: 07/31/20 23:14 Dose: 650 mg Documented by: Al Hydroxide/Mg Hydroxide (Mag Hydrox/Al Hydrox/Simeth 30 Ml Cup) 15 ml PO Q6HR PRN PRN Reason: Indigestion Allopurinol (Allopurinol 100 Mg Tab) 100 mg PO DAILY [facility] Last Admin: 08/01/20 09:21 Dose: 100 mg Documented by: Calcium Acetate (Calcium Acetate 667 Mg Tab) 667 mg PO TID-W/MEALS [facility] Last Admin: 08/01/20 16:04 Dose: 667 mg Documented by: Calcium Carbonate/Glycine (Calcium Carbonate 500 Mg Chewable) 1,000 mg PO Q4HR PRN PRN Reason: Dyspepsia Darbepoetin Karlos (Darbepoetin Karlos 40 Mcg/0.4 Ml Syringe) 40 mcg SQ Q7D [facility] Last Admin: 07/29/20 12:35 Dose: 40 mcg Documented by: Furosemide (Furosemide 80 Mg Tab) 80 mg PO BID@0900,1600 [facility] Last Admin: 08/01/20 16:04 Dose: 80 mg Documented by: Gabapentin (Gabapentin 100 Mg Cap) 100 mg PO HS [facility] Last Admin: 08/01/20 20:05 Dose: Not Given Documented by: Lactulose (Lactulose 20 Gm/30 Ml Cup) 20 gm PO DAILY PRN PRN Reason: Constipation Melatonin (Melatonin 3 Mg Tablet) 3 mg PO HS PRN PRN Reason: Insomnia Metoprolol Tartrate (Metoprolol Tartrate 25 Mg Tab) 25 mg PO BID [facility] Last Admin: 08/01/20 20:04 Dose: 25 mg Documented by: Midodrine (Midodrine 5 Mg Tab) 10 mg PO TID PRN PRN Reason: Blood Pressure - Low Last Admin: 07/31/20 09:45 Dose: 10 mg Documented by: Naloxone HCl (Naloxone 0.4 Mg/Ml 1 Ml Vial) 0.2 mg IV Q2M PRN PRN Reason: Opioid Reversal Ondansetron HCl (Ondansetron 4 Mg/2 Ml Vial) 4 mg IVP Q8HR PRN PRN Reason: Nausea And Vomiting Pantoprazole Sodium (Pantoprazole 40 Mg Tablet) 40 mg PO AC-BRKFST [facility] Last Admin: 08/01/20 06:55 Dose: 40 mg Documented by: Phytonadione (Phytonadione Oral 5 Mg/5 Ml Oral.Syrg) 10 mg PO DAILY [facility] Last Admin: 08/01/20 09:59 Dose: Not Given Documented by: Past medical history to include: GERD, hypertension, osteoarthritis, kidney failure, lung cancer with partial lobectomy, treated with chemotherapy causing bilateral foot drop and peripheral neuropathy, BPH Social history: Patient stopped smoking cigarettes 45 years ago. No alcohol. Lives alone. Family history: Cancer Physical examination: VITAL SIGNS: 98, 84, 22, 110/54, 97% room air GENERAL: reclining in bed, tired. Right chest wall hemodialysis catheter. EYES: [Pupils equal. Conjunctiva pale. NECK: JVD not raised; masses not palpable. HEART: First and second heart sounds are normal; no edema. LUNGS: Respiratory rate normal; decreased breath sound. MUSCULAR skeletal: Evidence of OA. Decreased muscle mass. Bony prominences. ABDOMEN: Soft, nontender, liver spleen not palpable, no masses palpable. Paniagua catheter.-Less bloody urine PSYCH: Alert and oriented x3; mood and affect normal. NEUROLOGICAL: [Cranial nerves grossly intact; no facial asymmetry, bilateral foot drop with the shoe brace Investigations: July 31: Hemoglobin 9 platelets 118 potassium 3.8 creatinine 3.09 July 30: Pro time 11.3 hemoglobin 7.7 July 29: Obese 8.2 hemoglobin 9.3 potassium 4.5 BUN 73 creatinine 4.63 iron58 TIBC 269 ferritin 182 Hepatitis B surface antigen, hepatitis B surface antibody, hepatitis B surface antibody quantitative: Less than 3.5, hepatitis B core total antibody: All nonreactive 2-D echocardiogram: Here 50-55%. Moderate to severe aortic stenosis. Moderate TR. WBC 5.4 hemoglobin 10.2 platelets 138 Potassium 5.6 BUN 110 creatinine 5.82 phosphorus 6 EKG tracing personally reviewed by me-normal sinus rhythm, PVC, nonspecific T- wave changes Chest x-ray film personally reviewed by me-fluid overload Assessment and plan: -End-stage renal disease, progressive, symptomatic- Dialysis catheter placed July 28:. Started hemodialysis -Medical asthenia multifactorial: Some improvement better with oral intake and hemodialysis -Anemia of chronic kidney disease Follow H&H -Acute blood loss anemia from hematuria Patient received 1 unit of blood. Follow H&H -Persistent hematuria following TURP 6 months ago.-Slow to respond Patient seen by Dr. Michael. May needs cystoscopy with cauterization -Hyperphosphatemia Secondary to renal failure. 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 Plan is for patient going to inpatient rehab. Other medications to continue.
[2020-08-02] MEDS: PANTOPRAZOLE 40 MG TABLET PO SCH (06:06)
[2020-08-02] MEDS: CALCIUM ACETATE 667 MG TAB PO SCH ×3 (06:06→16:17)
[2020-08-02 07:13] LABS: Anisocytosis Slight; Basophils # (A) 0.1 k/uL (0-0.2); Basophils % (A) 1 %; Eosinophils # (A) 0.2 k/uL (0-0.7); Eosinophils % (A) 4 %; HCT 32.3 % (39.0-53.0); HGB 10.2 gm/dL (13.0-17.5); Hypochromasia Slight; Lymphocytes # (A) 0.9 k/uL (1.0-4.8); Lymphocytes % (A) 14 %; MCH 32.6 pg (25.0-35.0); MCHC 31.5 g/dL (31.0-37.0); MCV 103.6 fL (80.0-100.0); Macrocytosis Moderate; Mean Platelet Volume 9.7; Monocytes # (A) 0.6 k/uL (0-1.0); Monocytes % (A) 10 %; Neutrophils # (A) 4.6 k/uL (1.3-7.7); Neutrophils % (A) 69 %; Platelet Count 147 k/uL (150-450); RBC 3.12 m/uL (4.30-5.90); RDW 16.7 % (11.5-15.5); WBC 6.6 k/uL (3.8-10.6)
--- NOTE | 2020-08-02 08:31 | P.PN ---
Subjective Progress Note Date: 08/02/20 The patient has been seen by me for urine retention and clots. He has recurrent gross hematuria due to suspected prostate bleeding. He is status post TURP by another urologist 6 months ago. The urine has cleared appropriately. The catheter can be removed prior to discharge for a voiding trial. He will need to follow up either with his own urologist or me to reassess the recurrent prostate bleeding Objective - Vital Signs Vital signs: Vital Signs Temp 97.9 F 08/02/20 04:40 Pulse 71 08/02/20 04:40 Resp 18 08/02/20 04:40 BP 116/56 08/02/20 04:40 Pulse Ox 96 08/02/20 04:40 Intake & Output 08/01/20 08/02/20 08/02/20 18:59 06:59 18:59 Intake Total 240 Output Total 500 620 Balance -260 -620 Weight 54.5 kg Intake: Oral 240 Output: Urine 500 620 Other: Voiding Method Indwelling Catheter Indwelling Catheter - Labs CBC & Chem 7: 08/02/20 06:35 07/31/20 08:30 Labs: Abnormal Lab Results - Last 24 Hours (Table) 08/02/20 Range/Units 06:35 RBC 3.12 L (4.30-5.90) m/uL Hgb 10.2 L (13.0-17.5) gm/dL Hct 32.3 L (39.0-53.0) % MCV 103.6 H (80.0-100.0) fL RDW 16.7 H (11.5-15.5) % Plt Count 147 L (150-450) k/uL Lymphocytes # 0.9 L (1.0-4.8) k/uL
[2020-08-02] MEDS: allopurinoL 100 MG TAB PO SCH (09:15)
[2020-08-02] MEDS: PHYTONADIONE ORAL 5 MG/5 ML ORAL.SYRG PO SCH (09:15)
[2020-08-02] MEDS: METOPROLOL TARTRATE 25 MG TAB PO SCH ×2 (09:15→20:13)
[2020-08-02] MEDS: FUROSEMIDE 80 MG TAB PO SCH ×2 (09:15→16:17)
--- NOTE | 2020-08-02 13:17 | PN ---
PROGRESS NOTE Patient is seen for followup for end-stage renal disease. He has had hematuria which is now improved. The patient has an indwelling Paniagua catheter. PHYSICAL EXAMINATION: On examination today, blood pressure was 116/56, heart rate 71 per minute. He is afebrile. Examination of the heart S1, S2. Examination of the lungs, bilateral breath sounds are heard. Abdomen is soft, nontender. Examination of lower extremities shows no evidence of edema. CASTING FINISHER exam grossly intact. LAB: Show hemoglobin 10.2, 07/31/2020. Sodium 138, potassium 3.8. ASSESSMENT: 1. End-stage renal disease, on hemodialysis on Monday, Monday, Monday schedule. 2. Urine retention and hematuria with clots status post TURP followed by Dr. Fierro, currently with clearance of hematuria. 3. Severe aortic stenosis and moderate mitral regurgitation. 4. Hyperkalemia, improved post dialysis. PLAN: Hemodialysis in a.m. Follow up with primary urologist as outpatient. MMODL / IJN: [id number] /
--- NOTE | 2020-08-02 13:48 | P.PN ---
Progress Note - Text Progress Note Date: 08/02/20 Chief Complaint: Tired History of presenting complaint: This is a very pleasant 84-year-old patient, follows with Dr. Karla Soto. Chronic stable medical conditions include GERD, hypertension, obstructive arthritis, peripheral neuropathy, bilateral foot drop. Patient has advancing renal function. He was due to see vascular for a hemodialysis catheter placement. Symptoms have gotten worse. Appetite has gone down. Gets easily short of breath. Patient still able to make urine. Patient initially presented to [facility]. And he was transferred here for vascular access. Vascular surgery's been consulted. Patient's son is at the bedside. No fever no chills. Tired. No chest pain. Patient had TURP about 6 months ago and has had intermittent bleeding since then. Admitted with end-stage kidney disease-worsening symptomatic, pulmonary edema, protein calorie malnutrition, anemia. Hemodialysis access was placed, right IJ by Dr. Paniagua. Started on hemodialysis. Has a Paniagua catheter with hematuria. Patient had TURP done a few weeks ago. Has been having intermittent bleeding since then. Started to eat better. Breathing improved. Patient did drop his hemoglobin. Received a unit of PRBC. Intermittent bladder wash was carried out. Today: Hematuria significantly cleared up. Oral intake fair. Operating room to rehab. Review of systems: Was done for constitutional, cardiovascular, GI, pulmonary. relevant finding as above Active Medications Acetaminophen (Acetaminophen Tab 325 Mg Tab) 650 mg PO Q6HR PRN PRN Reason: Mild Pain or Fever > 100.5 Last Admin: 07/31/20 23:14 Dose: 650 mg Documented by: Al Hydroxide/Mg Hydroxide (Mag Hydrox/Al Hydrox/Simeth 30 Ml Cup) 15 ml PO Q6HR PRN PRN Reason: Indigestion Allopurinol (Allopurinol 100 Mg Tab) 100 mg PO DAILY [facility] Last Admin: 08/02/20 09:15 Dose: 100 mg Documented by: Calcium Acetate (Calcium Acetate 667 Mg Tab) 667 mg PO TID-W/MEALS [facility] Last Admin: 08/02/20 12:20 Dose: 667 mg Documented by: Calcium Carbonate/Glycine (Calcium Carbonate 500 Mg Chewable) 1,000 mg PO Q4HR PRN PRN Reason: Dyspepsia Darbepoetin Karlos (Darbepoetin Karlos 40 Mcg/0.4 Ml Syringe) 40 mcg SQ Q7D [facility] Last Admin: 07/29/20 12:35 Dose: 40 mcg Documented by: Furosemide (Furosemide 80 Mg Tab) 80 mg PO BID@0900,1600 [facility] Last Admin: 08/02/20 09:15 Dose: 80 mg Documented by: Gabapentin (Gabapentin 100 Mg Cap) 100 mg PO HS [facility] Last Admin: 08/01/20 20:05 Dose: Not Given Documented by: Lactulose (Lactulose 20 Gm/30 Ml Cup) 20 gm PO DAILY PRN PRN Reason: Constipation Melatonin (Melatonin 3 Mg Tablet) 3 mg PO HS PRN PRN Reason: Insomnia Metoprolol Tartrate (Metoprolol Tartrate 25 Mg Tab) 25 mg PO BID [facility] Last Admin: 08/02/20 09:15 Dose: 25 mg Documented by: Midodrine (Midodrine 5 Mg Tab) 10 mg PO TID PRN PRN Reason: Blood Pressure - Low Last Admin: 07/31/20 09:45 Dose: 10 mg Documented by: Naloxone HCl (Naloxone 0.4 Mg/Ml 1 Ml Vial) 0.2 mg IV Q2M PRN PRN Reason: Opioid Reversal Ondansetron HCl (Ondansetron 4 Mg/2 Ml Vial) 4 mg IVP Q8HR PRN PRN Reason: Nausea And Vomiting Pantoprazole Sodium (Pantoprazole 40 Mg Tablet) 40 mg PO AC-BRKFST [facility] Last Admin: 08/02/20 06:06 Dose: 40 mg Documented by: Phytonadione (Phytonadione Oral 5 Mg/5 Ml Oral.Syrg) 10 mg PO DAILY [facility] Last Admin: 08/02/20 09:15 Dose: Not Given Documented by: Past medical history to include: GERD, hypertension, osteoarthritis, kidney failure, lung cancer with partial lobectomy, treated with chemotherapy causing bilateral foot drop and peripheral neuropathy, BPH Social history: Patient stopped smoking cigarettes 45 years ago. No alcohol. Lives alone. Family history: Cancer Physical examination: VITAL SIGNS: 97.7, 77, 20, 119/67, 97% room air GENERAL: reclining in bed, tired. Right chest wall hemodialysis catheter. EYES: [Pupils equal. Conjunctiva pale. NECK: JVD not raised; masses not palpable. HEART: First and second heart sounds are normal; no edema. LUNGS: Respiratory rate normal; decreased breath sound. MUSCULAR skeletal: Evidence of OA. Decreased muscle mass. Bony prominences. ABDOMEN: Soft, nontender, liver spleen not palpable, no masses palpable. Paniagua catheter.-Hematuria cleared up PSYCH: Alert and oriented x3; mood and affect normal. NEUROLOGICAL: [Cranial nerves grossly intact; no facial asymmetry, bilateral foot drop with the shoe brace Investigations: August 02: Hemoglobin 10.2 platelets 147 July 31: Hemoglobin 9 platelets 118 potassium 3.8 creatinine 3.09 July 30: Pro time 11.3 hemoglobin 7.7 July 29: Obese 8.2 hemoglobin 9.3 potassium 4.5 BUN 73 creatinine 4.63 iron58 TIBC 269 ferritin 182 Hepatitis B surface antigen, hepatitis B surface antibody, hepatitis B surface antibody quantitative: Less than 3.5, hepatitis B core total antibody: All nonreactive 2-D echocardiogram: Here 50-55%. Moderate to severe aortic stenosis. Moderate TR. WBC 5.4 hemoglobin 10.2 platelets 138 Potassium 5.6 BUN 110 creatinine 5.82 phosphorus 6 EKG tracing personally reviewed by me-normal sinus rhythm, PVC, nonspecific T- wave changes Chest x-ray film personally reviewed by me-fluid overload Assessment and plan: -End-stage renal disease, progressive, symptomatic- Dialysis catheter placed July 28:. Started hemodialysis -Medical asthenia multifactorial: Some improvement better with oral intake and hemodialysis -Anemia of chronic kidney disease Follow H&H -Acute blood loss anemia from hematuria Patient received 1 unit of blood. Follow H&H -Persistent hematuria following TURP 6 months ago.-Improved Patient seen by Dr. Michael. Responded to intermittent bladder wash. DC Paniagua catheter trial as per Dr. Michael. Patient follow-up with his own urologist Dr. Fierro as outpatient -Hyperphosphatemia Secondary to renal failure. 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 He needs to make a follow-up appointment with his urologist Dr. Fierro. Pending discharged to [facility]. DC trial of Paniagua today.
[2020-08-02] MEDS: GABAPENTIN 100 MG CAP PO SCH (20:11)
[2020-08-03] MEDS: PANTOPRAZOLE 40 MG TABLET PO SCH (06:22)
[2020-08-03] MEDS: CALCIUM ACETATE 667 MG TAB PO SCH ×3 (06:22→17:54)
[2020-08-03] MEDS: FUROSEMIDE 80 MG TAB PO SCH ×2 (09:52→17:54)
[2020-08-03] MEDS: allopurinoL 100 MG TAB PO SCH (09:52)
[2020-08-03] MEDS: METOPROLOL TARTRATE 25 MG TAB PO SCH ×2 (09:52→20:30)
[2020-08-03] MEDS: PHYTONADIONE ORAL 5 MG/5 ML ORAL.SYRG PO SCH (09:56)
[2020-08-03 15:32] VITALS: BMI 17.6
--- NOTE | 2020-08-03 17:09 | PN ---
PROGRESS NOTE Patient is seen for followup for end-stage renal disease. He is maintained on a Monday, Monday, Monday schedule for dialysis. PHYSICAL EXAMINATION: Patient is awake, comfortable, not in any acute distress. Blood pressure 105/53, heart rate 90 per minute, he is afebrile. Examination of the heart S1, S2. Examination of the lungs, bilateral breath sounds are heard. Abdomen is soft, nontender. Examination of lower extremities shows no evidence of edema. CONCEPT ARTIST exam grossly intact. LAB: Show hemoglobin 10.2, sodium 138, potassium 3.8, BUN 39, creatinine 3.09. ASSESSMENT: 1. End-stage renal disease, started dialysis this admission. Patient will be going to [facility] post discharge on a Monday, Monday, Monday schedule. 2. Urine retention and hematuria with clot, status post TURP, followed by Dr. Fierro as outpatient out of [facility]. Currently, hematuria has cleared. 3. Severe aortic stenosis and moderate mitral regurgitation. 4. Hyperkalemia, improved post dialysis. PLAN: Maintain Monday, Monday, Monday schedule for hemodialysis. Patient can be discharged post dialysis today. He needs to follow up with Urology as outpatient. Continue with the Paniagua catheter for now. MMODL / IJN: [id number] /
[2020-08-03] MEDS: GABAPENTIN 100 MG CAP PO SCH (20:30)
--- NOTE | 2020-08-03 22:49 | P.PN ---
Subjective Progress Note Date: 08/03/20 Principal diagnosis: ESRD. Started on hemodialysis. Acute blood loss anemia from hematuria. This is a very pleasant 84-year-old patient, follows with Dr. Karla Soto. Chronic stable medical conditions include GERD, hypertension, obstructive arthritis, peripheral neuropathy, bilateral foot drop. Patient has advancing renal function. He was due to see vascular for a hemodialysis catheter placement. Symptoms have gotten worse. Appetite has gone down. Gets easily short of breath. Patient still able to make urine. Patient initially presented to [facility]. And he was transferred here for vascular access. Vascular surgery's been consulted. Patient's son is at the bedside. No fever no chills. Tired. No chest pain. Patient had TURP about 6 months ago and has had intermittent bleeding since then. Admitted with end-stage kidney disease-worsening symptomatic, pulmonary edema, protein calorie malnutrition, anemia. Hemodialysis access was placed, right IJ by Dr. Paniagua. Started on hemodialysis. Has a Paniagua catheter with hematuria. Patient had TURP done a few weeks ago. Has been having intermittent bleeding since then. Started to eat better. Breathing improved. Patient did drop his hemoglobin. Received a unit of PRBC. Intermittent bladder wash was carried out. 08/03/2020 Patient is currently in the select care unit. Lying in the bed comfortably. No complaints of chest pain or worsening shortness breath. Able to make urine. No complaints of nausea vomiting or abdominal pain or diarrhea. Blood pressure 1 00/53 and pulse 75 respirations 16 and pulse ox 97% on room air. Laboratory showed BUN 39 and creatinine 3.09. Patient is being continued Lasix 80 mg twice daily. Nephrology is on board. Patient is on hemodialysis Monday. Patient will need to follow-up with urology as an outpatient. No episodes of hematuria overnight. Review of systems: Was done for constitutional, cardiovascular, GI, pulmonary. relevant finding as above/ Active Medications Generic Name Dose Route Start Last Admin Trade Name Freq PRN Reason Stop Dose Admin Acetaminophen 650 mg 07/27/20 15:19 07/31/20 23:14 Acetaminophen Tab 325 Mg Tab PO 650 mg Q6HR PRN Administration Mild Pain or Fever > 100.5 Al Hydroxide/Mg Hydroxide 15 ml 07/27/20 15:19 Mag Hydrox/Al Hydrox/Simeth 30 Ml Cup PO Q6HR PRN Indigestion Allopurinol 100 mg 07/28/20 09:00 08/03/20 09:52 Allopurinol 100 Mg Tab PO 100 mg DAILY [facility] Administration Calcium Acetate 667 mg 07/28/20 17:30 08/03/20 17:54 Calcium Acetate 667 Mg Tab PO 667 mg TID-W/MEALS [facility] Administration Calcium Carbonate/Glycine 1,000 mg 07/27/20 15:19 Calcium Carbonate 500 Mg Chewable PO Q4HR PRN Dyspepsia Darbepoetin Karlos 40 mcg 07/29/20 09:00 07/29/20 12:35 Darbepoetin Karlos 40 Mcg/0.4 Ml Syringe SQ 40 mcg Q7D [facility] Administration Furosemide 80 mg 07/31/20 16:00 08/03/20 17:54 Furosemide 80 Mg Tab PO 80 mg BID@0900,1600 [facility] Administration Gabapentin 100 mg 07/28/20 18:30 08/03/20 20:30 Gabapentin 100 Mg Cap PO Not Given HS [facility] Lactulose 20 gm 07/27/20 15:19 Lactulose 20 Gm/30 Ml Cup PO DAILY PRN Constipation Melatonin 3 mg 07/27/20 15:19 Melatonin 3 Mg Tablet PO HS PRN Insomnia Metoprolol Tartrate 25 mg 07/27/20 21:00 08/03/20 20:30 Metoprolol Tartrate 25 Mg Tab PO 25 mg BID [facility] Administration Midodrine 10 mg 07/30/20 10:02 07/31/20 09:45 Midodrine 5 Mg Tab PO 10 mg TID PRN Administration Blood Pressure - Low Naloxone HCl 0.2 mg 07/27/20 15:19 Naloxone 0.4 Mg/Ml 1 Ml Vial IV Q2M PRN Opioid Reversal Ondansetron HCl 4 mg 07/27/20 15:19 Ondansetron 4 Mg/2 Ml Vial IVP Q8HR PRN Nausea And Vomiting Pantoprazole Sodium 40 mg 07/28/20 07:30 08/03/20 06:22 Pantoprazole 40 Mg Tablet PO 40 mg AC-BRKFST [facility] Administration Phytonadione 10 mg 07/31/20 09:00 08/03/20 09:56 Phytonadione Oral 5 Mg/5 Ml Oral.Syrg PO 10 mg DAILY [facility] Administration Objective - Vital Signs Vital signs: Vital Signs Temp 97.3 F L 08/03/20 17:50 Pulse 86 08/03/20 17:50 Resp 16 08/03/20 17:50 BP 124/74 08/03/20 17:50 Pulse Ox 97 08/03/20 17:50 Intake & Output 08/03/20 08/03/20 08/04/20 06:59 18:59 06:59 Intake Total 1080 Output Total 400 1100 Balance -400 -20 Weight 54.3 kg 54.3 kg Intake: Oral 1080 Output: Urine 400 100 Hemodialysis 1000 Other: Voiding Method Indwelling Catheter Urinal - Exam GENERAL: reclining in bed, tired. Right chest wall hemodialysis catheter. EYES: [Pupils equal. Conjunctiva pale. NECK: JVD not raised; masses not palpable. HEART: First and second heart sounds are normal; no edema. LUNGS: Respiratory rate normal; decreased breath sound. MUSCULAR skeletal: Evidence of OA. Decreased muscle mass. Bony prominences. ABDOMEN: Soft, nontender, liver spleen not palpable, no masses palpable. Paniagua catheter.-Hematuria cleared up PSYCH: Alert and oriented x3; mood and affect normal. NEUROLOGICAL: [Cranial nerves grossly intact; no facial asymmetry, bilateral foot drop with the shoe brace - Labs CBC & Chem 7: 08/02/20 06:35 07/31/20 08:30 Assessment and Plan Assessment: -End-stage renal disease, progressive, symptomatic- Dialysis catheter placed July 28:. Started hemodialysis -Anemia of chronic kidney disease Follow H&H -Acute blood loss anemia from hematuria Patient received 1 unit of blood. Follow H&H -Persistent hematuria following TURP 6 months ago.-Improved Patient seen by Dr. Michael. Responded to intermittent bladder wash. DC Paniagua catheter trial as per Dr. Michael. Patient follow-up with his own urologist Dr. Fierro as outpatient -Hyperphosphatemia Secondary to renal failure. 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 He needs to make a follow-up appointment with his urologist Dr. Fierro. Pending discharged to [facility]. DCed trial of Paniagua. Time with Patient: Greater than 30
[2020-08-04] MEDS: CALCIUM ACETATE 667 MG TAB PO SCH ×2 (06:11→12:18)
[2020-08-04] MEDS: PANTOPRAZOLE 40 MG TABLET PO SCH (06:11)
[2020-08-04 07:18] LABS: Anisocytosis Slight; Basophils % (A) 1 %; Eosinophils # (A) 0.2 k/uL (0-0.7); Eosinophils % (A) 3 %; HCT 32.6 % (39.0-53.0); HGB 10.4 gm/dL (13.0-17.5); Hypochromasia Slight; Lymphocytes # (A) 0.8 k/uL (1.0-4.8); Lymphocytes % (A) 14 %; MCH 33.3 pg (25.0-35.0); MCV 104.1 fL (80.0-100.0); Macrocytosis Moderate; Mean Platelet Volume 8.9; Monocytes # (A) 0.7 k/uL (0-1.0); Monocytes % (A) 12 %; Neutrophils % (A) 69 %; Platelet Count 146 k/uL (150-450); RBC 3.13 m/uL (4.30-5.90); RDW 16.8 % (11.5-15.5); WBC 5.9 k/uL (3.8-10.6)
[2020-08-04 07:42] LABS: Calcium 8.8 mg/dL (8.4-10.2); Potassium 4.8 mmol/L (3.5-5.1)
[2020-08-04 09:10] VITALS: TEMP 97.9
[2020-08-04] MEDS: FUROSEMIDE 80 MG TAB PO SCH (09:12)
[2020-08-04] MEDS: allopurinoL 100 MG TAB PO SCH (09:12)
[2020-08-04] MEDS: METOPROLOL TARTRATE 25 MG TAB PO SCH (09:14)
[2020-08-04] MEDS: PHYTONADIONE ORAL 5 MG/5 ML ORAL.SYRG PO SCH (09:14)
--- NOTE | 2020-08-04 10:13 | PN ---
PROGRESS NOTE Patient is seen for followup for end-stage renal disease. He was dialyzed yesterday. Patient tolerated his treatment well. We had about 1 L of ultrafiltration. Currently he is meeting placement in rehab. PHYSICAL EXAMINATION: On examination today, blood pressure 94/50, heart rate 92 per minute, he is afebrile. Examination of the heart S1, S2. Examination of the lungs, bilateral breath sounds are heard. Decreased breath sounds at bases. Abdomen is soft, nontender. Examination of lower extremities shows chronic skin changes. No significant edema noted. Paniagua catheter has been discontinued. MSW exam grossly intact. LABS: Show hemoglobin of 10.4, sodium 137, potassium 4.8. ASSESSMENT: 1. End-stage renal disease, on hemodialysis on a Monday, Monday, Monday schedule. 2. Hematuria, previous history of prostate bleeding and Paniagua catheter. Currently the Paniagua catheter has been discontinued. The patient has been voiding. He follows with Urology as outpatient. 3. Hyperkalemia, now improved. 4. Severe aortic stenosis with moderate mitral regurgitation. PLAN: Hemodialysis in a.m. If patient is discharged he can follow up with dialysis tomorrow as outpatient. MMODL / IJN: [id number] /
[2020-08-04 12:15] VITALS: BP 120/65; PULSE 85; RESP 18
--- NOTE | 2020-08-04 14:40 | P.DS ---
Providers Date of admission: 07/27/20 13:47 Expected date of discharge: 08/04/20 Attending physician: Romulo Gale Consults: 07/27/20 15:21 Consult Physician Routine Consulting Provider: Harris Escobar Consult Reason/Comments: End-stage kidney disease Do you want consulting provider notified?: Yes 07/28/20 15:16 Consult Physician Routine Consulting Provider: Madhavi Calabrese Consult Reason/Comments: Severe Do you want consulting provider notified?: Yes 07/28/20 15:42 Consult Physician Routine Consulting Provider: Josse Ovalle Consult Reason/Comments: Blood in urine Do you want consulting provider notified?: Yes Primary care physician: Stated None Hospital Course: Discharge diagnosis -End-stage renal disease, progressive, symptomatic- Dialysis catheter placed July 28:. Started hemodialysis -Anemia of chronic kidney disease Follow H&H -Acute blood loss anemia from hematuria Patient received 1 unit of blood. Hemoglobin is stable. -Persistent hematuria following TURP 6 months ago.-Improved Patient seen by Dr. Michael. Responded to intermittent bladder wash. Paniagua catheter has been discontinued.. Patient follow-up with his own urologist Dr. Fierro as outpatient -Hyperphosphatemia Secondary to renal failure. 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 Karla Soto. Chronic stable medical conditions include GERD, hypertension, obstructive arthritis, peripheral neuropathy, bilateral foot drop. Patient has advancing renal function. He was due to see vascular for a hemodialysis catheter placement. Symptoms have gotten worse. Appetite has gone down. Gets easily short of breath. Patient still able to make urine. Patient initially presented to [facility]. And he was transferred here for vascular access. Vascular surgery's been consulted. Patient's son is at the bedside. No fever no chills. Tired. No chest pain. Patient had TURP about 6 months ago and has had intermittent bleeding since then. Admitted with end-stage kidney disease-worsening symptomatic, pulmonary edema, protein calorie malnutrition, anemia. Hemodialysis access was placed, right IJ by Dr. Paniagua. Started on hemodialysis. Has a Paniagua catheter with hematuria. Patient had TURP done a few weeks ago. Has been having intermittent bleeding since then. Started to eat better. Breathing improved. Patient did drop his hemoglobin. Received a unit of PRBC. Intermittent bladder wash was carried out. 08/03/2020 Patient is currently in the select care unit. Lying in the bed comfortably. No complaints of chest pain or worsening shortness breath. Able to make urine. No complaints of nausea vomiting or abdominal pain or diarrhea. Blood pressure 100/53 and pulse 75 respirations 16 and pulse ox 97% on room air. Laboratory showed BUN 39 and creatinine 3.09. Patient is being continued Lasix 80 mg twice daily. Nephrology is on board. Patient is on hemodialysis Monday. Patient will need to follow-up with urology as an outpatient. No episodes of hematuria overnight. 08/04/2020 Patient is currently resting in the bed comfortably. Denied any complaints of chest pain or shortness of breath. Tolerating oral diet. Blood pressure stable. Next hemodialysis is tomorrow. Patient really to follow with hemodialysis center. Otherwise patient will be continued on Lasix 80 mg twice daily. Patient is cleared from nephrology standpoint. Will need follow-up with urology for hematuria. Physical examination GENERAL: reclining in bed, awake and alert, Right chest wall hemodialysis catheter. EYES: [Pupils equal. Conjunctiva pale. NECK: JVD not raised; masses not palpable. HEART: First and second heart sounds are normal; no edema. LUNGS: Respiratory rate normal; decreased breath sound. MUSCULAR skeletal: Evidence of OA. Decreased muscle mass. Bony prominences. ABDOMEN: Soft, nontender, liver spleen not palpable, no masses palpable. Paniagua catheter.-Hematuria cleared up PSYCH: Alert and oriented x3; mood and affect normal. NEUROLOGICAL: [Cranial nerves grossly intact; no facial asymmetry, bilateral foot drop with the shoe brace Vital Signs 08/04/20 08/04/20 09:09 12:00 Temperature 97.9 F 97.9 F Pulse Rate [ 92 85 Pulse Oximetery ] Respiratory 16 18 Rate Blood Pressure 94/50 120/65 [Right Arm] O2 Sat by Pulse 98 100 Oximetry Total time taken greater than 35 minutes including 18 minutes for counseling and coordination of care. Patient Condition at Discharge: Stable Plan - Discharge Summary Discharge Rx Participant: No New Discharge Prescriptions: New Furosemide [Lasix] 80 mg PO BID@0900,1600 #60 tab Calcium Acetate [PhosLo] 667 mg PO TID-W/MEALS #90 tab Midodrine [ProAmatine] 10 mg PO TID PRN #90 tab PRN Reason: Blood Pressure - Low Gabapentin [Neurontin] 100 mg PO HS #30 cap Continue Metoprolol Tartrate [Lopressor] 25 mg PO PC-BID Allopurinol [Zyloprim] 100 mg PO DAILY Omeprazole 20 mg PO DAILY Ferrous Sulfate [Iron] 325 mg PO DAILY Discontinued Sodium Bicarbonate Tab 650 mg PO BID Discharge Medication List Allopurinol [Zyloprim] 100 mg PO DAILY 07/10/20 [History] Ferrous Sulfate [Iron] 325 mg PO DAILY 07/10/20 [History] Metoprolol Tartrate [Lopressor] 25 mg PO PC-BID 07/10/20 [History] Omeprazole 20 mg PO DAILY 07/10/20 [History] Calcium Acetate [PhosLo] 667 mg PO TID-W/MEALS #90 tab 08/04/20 [Rx] Furosemide [Lasix] 80 mg PO BID@0900,1600 #60 tab 08/04/20 [Rx] Gabapentin [Neurontin] 100 mg PO HS #30 cap 08/04/20 [Rx] Midodrine [ProAmatine] 10 mg PO TID PRN #90 tab 08/04/20 [Rx] Follow up Appointment(s)/Referral(s): Madhavi Calabrese MD [STAFF PHYSICIAN] - 2 Weeks Activity/Diet/Wound Care/Special Instructions: Hemodialysis - [facility] ([facility] [id number], ) Monday, Monday, Monday @2p.m. - start date on 08/05/20 @1:30 p.m. Discharge Disposition: HOME SELF-CARE
--- NOTE | 2020-08-06 05:49 | CDI ---
Documentation Clarification Form Date: 08/06/20 From: Chikis Kinney Admit Date: 07/27/2020 01:47:00 PM Patient Name: Facundo Unger Visit Number: [id number] Discharge Date: 08/04/2020 03:57:00 PM ATTENTION: The Clinical Documentation Specialists (CDI) and [facility] Coding Staff appreciate your assistance in clarifying documentation. Please respond to the clarification below the line at the bottom and electronically sign. The CDI & [facility] Coding staff will review the response and follow-up if needed. Please note: Queries are made part of the Legal Health Record. If you have any questions, please contact the author of this message via ITS. Dr. Mark Bell, Conflicting documentation has been found in the medical record. As attending physician, please provide clarification. Per your documentation no heart failure was documented. Per Dr Michael "He is in the hospital with congestive failure and acute on chronic renal failure." History/Risk Factors: HTN w ESRD, acute renal failure, acute pulmonary edema with fluid overload. Clinical Indicators: Acute pulmonary with fluid overload. Acute renal failure.No BNP. CXR- There are changes consistent with mild chronic heart failure. ECHO-Overall left ventricular systolic function is low-normal with, an EF between 50 - 55 %. Treatment: IV Lasix 80 mg Q 12HR, Dialysis initiated Please clarify which diagnosis is most appropriate: [ ] CHF, please specify acuity and type [ ] No CHF [ ] Other (please specify) [ ] Unable to determine No CHF MTDD
== END 2020-08-04 15:57 | DRG 673 ==
LOC: 3SCARD 13:47
PROVIDERS: ADMIT Hospitalist; ATTEND Hospitalist
PROC: 0JH63XZ Insertion of Tunneled Vascular Access Device into Chest Subcutaneous Tissue and Fascia, Percutaneous Approach (ICD-10-PCS; principal; 2020-07-28 09:00)
PROC: 06H033Z Insertion of Infusion Device into Inferior Vena Cava, Percutaneous Approach (ICD-10-PCS; principal; 2020-07-28 09:00)
PROC: 5A1D70Z Performance of Urinary Filtration, Intermittent, Less than 6 Hours Per Day (ICD-10-PCS; 2020-07-28 09:00)
PROC: 30233N1 Transfusion of Nonautologous Red Blood Cells into Peripheral Vein, Percutaneous Approach (ICD-10-PCS; 2020-07-30)
DX: N17.9 Acute kidney failure, unspecified (principal); J81.0 Acute pulmonary edema; E44.0 Moderate protein-calorie malnutrition; I12.0 Hypertensive chronic kidney disease with stage 5 chronic kidney disease or end stage renal disease; Z68.1 Body mass index [BMI] 19.9 or less, adult; D62 Acute posthemorrhagic anemia; T82.838A Hemorrhage due to vascular prosthetic devices, implants and grafts, initial encounter; D69.6 Thrombocytopenia, unspecified; E83.39 Other disorders of phosphorus metabolism; D63.1 Anemia in chronic kidney disease; I95.9 Hypotension, unspecified; N18.6 End stage renal disease; I27.29 Other secondary pulmonary hypertension; Z99.2 Dependence on renal dialysis; Z20.822 Contact with and (suspected) exposure to COVID-19; E87.70 Fluid overload, unspecified; E87.5 Hyperkalemia; I08.3 Combined rheumatic disorders of mitral, aortic and tricuspid valves; N42.1 Congestion and hemorrhage of prostate; E61.1 Iron deficiency; G62.9 Polyneuropathy, unspecified; N40.1 Benign prostatic hyperplasia with lower urinary tract symptoms; R33.8 Other retention of urine; M21.372 Foot drop, left foot; M21.371 Foot drop, right foot; K21.9 Gastro-esophageal reflux disease without esophagitis; M19.90 Unspecified osteoarthritis, unspecified site; R80.9 Proteinuria, unspecified; R26.9 Unspecified abnormalities of gait and mobility; Z79.899 Other long term (current) drug therapy; Z85.118 Personal history of other malignant neoplasm of bronchus and lung; Z90.2 Acquired absence of lung [part of]; Z90.49 Acquired absence of other specified parts of digestive tract; Z87.19 Personal history of other diseases of the digestive system; Z90.79 Acquired absence of other genital organ(s); Z87.891 Personal history of nicotine dependence; Z87.438 Personal history of other diseases of male genital organs; Z92.21 Personal history of antineoplastic chemotherapy; Z98.890 Other specified postprocedural states; Y84.1 Kidney dialysis as the cause of abnormal reaction of the patient, or of later complication, without mention of misadventure at the time of the procedure
CPT/HCPCS: 36558; 71046; 76937; 77001; 80048; 80053; 82728; 83540; 83550; 83735; 84100; 84132; 85025; 85610; 86704; 86706; 86850; 86900; 86901; 86920; 87340; 87635; 90935; 93306

== ENCOUNTER 2020-09-25 13:32 | Inpatient (IN) | payer MEDICARE ==
[2020-09-25] MEDS ORDERED: SODIUM CHLORIDE 0.9% 500 ML 500 ML IV ONE (13:37)
[2020-09-25 13:56] LABS: VBG PH 7.38 (7.31-7.41)
[2020-09-25 13:57] LABS: Anisocytosis Slight; Basophils % (A) 0 %; Eosinophils # (A) 0.1 k/uL (0-0.7); Eosinophils % (A) 1 %; HCT 37.6 % (39.0-53.0); HGB 11.5 gm/dL (13.0-17.5); Hypochromasia Marked; Lymphocytes # (A) 0.5 k/uL (1.0-4.8); Lymphocytes % (A) 5 %; MCH 34.5 pg (25.0-35.0); MCHC 30.7 g/dL (31.0-37.0); MCV 112.5 fL (80.0-100.0); Macrocytosis Marked; Mean Platelet Volume 9.1; Monocytes # (A) 0.2 k/uL (0-1.0); Monocytes % (A) 2 %; Neutrophils # (A) 9.3 k/uL (1.3-7.7); Neutrophils % (A) 91 %; Platelet Count 172 k/uL (150-450); RBC 3.34 m/uL (4.30-5.90); RDW 16.6 % (11.5-15.5); WBC 10.2 k/uL (3.8-10.6)
--- NOTE | 2020-09-25 13:57 | ED ---
General Adult HPI - General Chief complaint: Neuro Symptoms/Deficit Stated complaint: stroke symptoms Time Seen by Provider: 09/25/20 13:37 Source: patient, RN notes reviewed, old records reviewed Mode of arrival: wheelchair Limitations: altered mental status - History of Present Illness Initial comments: 84-year-old male had been brought down from preop holding for acute mental status changes. Code stroke had been activated and the patient was taken to CT prior to arrival in the emergency department. The vascular surgeon Dr. Marx had evaluated the patient in the preop. He had been alert and conversant and then suddenly became unresponsive. No reported history of anticoagulation. Patient does have end-stage renal disease on hemodialysis. No reported seizure activity. There was no focal deficits reported by triage staff. No medications had been administered. - Related Data Home Medications Medication Instructions Recorded Confirmed Allopurinol [Zyloprim] 100 mg PO DAILY 07/10/20 09/25/20 Metoprolol Tartrate [Lopressor] 25 mg PO PC-BID 07/10/20 09/22/20 Omeprazole 20 mg PO DAILY 07/10/20 09/25/20 Previous Rx's Medication Instructions Recorded Calcium Acetate [PhosLo] 667 mg PO TID-W/MEALS #90 tab 08/04/20 Midodrine [ProAmatine] 10 mg PO TID PRN #90 tab 08/04/20 Allergies Allergy/AdvReac Type Severity Reaction Status Date / Time No Known Allergies Allergy Verified 09/22/20 14:47 Review of Systems ROS Statement: Those systems with pertinent positive or pertinent negative responses have been documented in the HPI. ROS Other: All systems not noted in ROS Statement are negative. 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 Has started dialysis about one month ago. He will have dialysis on . History of Any Multi-Drug Resistant Organisms: None Reported Past Surgical History: Cholecystectomy, Prostate Surgery Additional Past Surgical History / Comment(s): PARTIAL RIGHT LUNG REMOVED. Past Anesthesia/Blood Transfusion Reactions: No Reported Reaction Past Psychological History: Depression Smoking Status: Former smoker Past Alcohol Use History: None Reported Past Drug Use History: None Reported - Past Family History Brother(s) Family Medical History: Cancer General Exam Limitations: no limitations General appearance: lethargic Head exam: Present: atraumatic, normocephalic Eye exam: Present: normal appearance, PERRL ENT exam: Present: mucous membranes dry, other (Gag intact, protecting airway) Neck exam: Present: normal inspection. Absent: tenderness, meningismus Respiratory exam: Present: rhonchi, decreased breath sounds. Absent: respiratory distress Cardiovascular Exam: Present: tachycardia, irregular rhythm GI/Abdominal exam: Present: soft. Absent: distended, tenderness, guarding Extremities exam: Present: other (Radial pulses intact) Neurological exam: Present: other (Patient withdrawing to pain in all 4 extremities) Skin exam: Present: warm, dry, intact. Absent: cyanosis, diaphoretic Course Vital Signs 09/25/20 09/25/20 09/25/20 13:34 13:45 14:00 Temperature 98.0 F 98.0 F 98.0 F Pulse Rate 115 H 120 H 112 H Respiratory 18 16 16 Rate Blood Pressure 128/69 126/69 152/84 O2 Sat by Pulse 91 L 100 99 Oximetry 09/25/20 09/25/20 09/25/20 14:15 14:30 14:40 Temperature Pulse Rate 124 H 125 H 128 H Respiratory 18 18 16 Rate Blood Pressure 160/85 169/89 165/87 O2 Sat by Pulse 97 100 100 Oximetry 09/25/20 09/25/20 14:45 14:57 Temperature Pulse Rate 126 H Respiratory 16 16 Rate Blood Pressure 158/84 O2 Sat by Pulse 97 Oximetry - Reevaluation(s) Reevaluation #1: 09/25/20 13:[address] Gómez covering for stroke, he is currently reviewing CT CT angiography will advise of recommendations, possible TPA 09/25/20 14:10 Reevaluation #2: 09/25/20 14:10 Patient remains obtunded mentally responsive. I did discuss tPA with the son who believes that his father would like to receive this medication for the possibility of ischemic stroke. The risks including internal hemorrhage intracranial hemorrhage, and worsening of his condition were discussed with son who is agreeable. EKG Findings - EKG Comments: EKG Findings:: EKG: Atrial fibrillation with RVR left axis, rate of 117, QRS duration 98, QTC 479, no ST segment elevation, ST segment depression and T-wave inversion in the lateral precordial leads. Medical Decision Making - Medical Decision Making 84-year-old male who had presented from [facility] area with acute altered mental status. Patient had been alert, conversant, and acutely became obtunded. Stroke had been activated prior to arrival in the emergency department. The patient was transported to CT followed by the emergency room. CT without contrast was negative for intracranial hemorrhage or mass effect. Given this acute change I did discuss the possibility of TPA with the patient's son who is agreeable. After discussion with Dr. Kannan guido for stroke neurology we did agree to administer TPA. Patient will be admitted to Dr. Medrano. He will be admitted to a monitored bed. I did discuss case with Dr. Marti guido for neurology. Patient is a DO NOT RESUSCITATE I had a long discussion with the son regarding this. Family members are currently being contacted regarding this patient's poor prognosis. - Lab Data Result diagrams: 09/25/20 13:41 09/25/20 13:41 Lab Results 09/25/20 09/25/20 09/25/20 Range/Units 13:41 13:41 13:41 WBC 10.2 (3.8-10.6) k/uL RBC 3.34 L (4.30-5.90) m/uL Hgb 11.5 L (13.0-17.5) gm/dL Hct 37.6 L (39.0-53.0) % MCV 112.5 H (80.0-100.0) fL MCH 34.5 (25.0-35.0) pg MCHC 30.7 L (31.0-37.0) g/dL RDW 16.6 H (11.5-15.5) % Plt Count 172 (150-450) k/uL MPV 9.1 Neutrophils % 91 % Lymphocytes % 5 % Monocytes % 2 % Eosinophils % 1 % Basophils % 0 % Neutrophils # 9.3 H (1.3-7.7) k/uL Lymphocytes # 0.5 L (1.0-4.8) k/uL Monocytes # 0.2 (0-1.0) k/uL Eosinophils # 0.1 (0-0.7) k/uL Basophils # 0.0 (0-0.2) k/uL Hypochromasia Marked Anisocytosis Slight Macrocytosis Marked A PT 12.7 H (9.0-12.0) sec INR 1.2 H (<1.2) APTT 29.2 (22.0-30.0) sec VBG pH (7.31-7.41) VBG pCO2 (37-51) mmHg VBG HCO3 (24-28) mmol/L Sodium 136 L (137-145) mmol/L Potassium 3.6 (3.5-5.1) mmol/L Chloride 106 (98-107) mmol/L Carbon Dioxide 25 (22-30) mmol/L Anion Gap 5 mmol/L BUN 19 (9-20) mg/dL Creatinine 2.99 H (0.66-1.25) mg/dL Est GFR (CKD-EPI)AfAm 21 (>60 ml/min/1.73 sqM) Est GFR (CKD-EPI)NonAf 18 (>60 ml/min/1.73 sqM) Glucose 82 (74-99) mg/dL Plasma Lactic Acid Nabil (0.7-2.0) mmol/L Calcium 6.6 L (8.4-10.2) mg/dL Magnesium 1.5 L (1.6-2.3) mg/dL Total Bilirubin 0.6 (0.2-1.3) mg/dL AST 27 (17-59) U/L ALT 7 (4-49) U/L Alkaline Phosphatase 58 (38-126) U/L Troponin I (0.000-0.034) ng/mL Total Protein 5.6 L (6.3-8.2) g/dL Albumin 2.6 L (3.5-5.0) g/dL 09/25/20 09/25/20 09/25/20 Range/Units 13:41 13:41 13:41 WBC (3.8-10.6) k/uL RBC (4.30-5.90) m/uL Hgb (13.0-17.5) gm/dL Hct (39.0-53.0) % MCV (80.0-100.0) fL MCH (25.0-35.0) pg MCHC (31.0-37.0) g/dL RDW (11.5-15.5) % Plt Count (150-450) k/uL MPV Neutrophils % % Lymphocytes % % Monocytes % % Eosinophils % % Basophils % % Neutrophils # (1.3-7.7) k/uL Lymphocytes # (1.0-4.8) k/uL Monocytes # (0-1.0) k/uL Eosinophils # (0-0.7) k/uL Basophils # (0-0.2) k/uL Hypochromasia Anisocytosis Macrocytosis PT (9.0-12.0) sec INR (<1.2) APTT (22.0-30.0) sec VBG pH 7.38 (7.31-7.41) VBG pCO2 44 (37-51) mmHg VBG HCO3 25 (24-28) mmol/L Sodium (137-145) mmol/L Potassium (3.5-5.1) mmol/L Chloride (98-107) mmol/L Carbon Dioxide (22-30) mmol/L Anion Gap mmol/L BUN (9-20) mg/dL Creatinine (0.66-1.25) mg/dL Est GFR (CKD-EPI)AfAm (>60 ml/min/1.73 sqM) Est GFR (CKD-EPI)NonAf (>60 ml/min/1.73 sqM) Glucose (74-99) mg/dL Plasma Lactic Acid Nabil 1.1 (0.7-2.0) mmol/L Calcium (8.4-10.2) mg/dL Magnesium (1.6-2.3) mg/dL Total Bilirubin (0.2-1.3) mg/dL AST (17-59) U/L ALT (4-49) U/L Alkaline Phosphatase (38-126) U/L Troponin I 0.060 H* (0.000-0.034) ng/mL Total Protein (6.3-8.2) g/dL Albumin (3.5-5.0) g/dL Critical Care Time Critical Care Time: Yes Total Critical Care Time: 35 Disposition Clinical Impression: Cerebrovascular accident (CVA), Acute encephalopathy Disposition: ADMITTED IP TO THIS [facility] Condition: Serious Is patient prescribed a controlled substance at d/c from ED?: No Referrals: None,Stated [Primary Care Provider] - 1-2 days Decision to Admit Reason: Admit from EC Decision Date: 09/25/20 Decision Time: 14:47
[2020-09-25 14:10] LABS: Albumin 2.6 g/dL (3.5-5.0); Calcium 6.6 mg/dL (8.4-10.2); Total Bilirubin 0.6 mg/dL (0.2-1.3); Total Protein 5.6 g/dL (6.3-8.2)
[2020-09-25 14:12] LABS: Magnesium 1.5 mg/dL (1.6-2.3); Potassium 3.6 mmol/L (3.5-5.1)
[2020-09-25] MEDS ORDERED: Alteplase PER PHARMACY Stroke 1 EACH MISC MISCELLANE PRN (14:17)
[2020-09-25 14:19] LABS: INR 1.2 (<1.2); Partial Thromboplastin Time 29.2 sec (22.0-30.0); Prothrombin Time 12.7 sec (9.0-12.0)
[2020-09-25] MEDS ORDERED: ALTEPLASE BOLUS FOR STROKE 7 MG in EMPTY SYRINGE 1 SYR IV STA (14:19)
--- NOTE | 2020-09-25 14:20 | P.PN ---
<Inna Lee - Last Filed: 09/25/20 14:12> Subjective Progress Note Date: 09/25/20 This is an 84-year-old with a history of chronic kidney disease who is been following outpatient with nephrology who is been having increased swelling and shortness of breath and was recommended that he will need hemodialysis. The p atient was scheduled for outpatient left upper extremity fistula creation today. The patient was seen prior to procedure and had mental status changes approximately around 12-1230 and a code stroke was initiated Objective - Vital Signs Vital signs: Vital Signs Temp 98.0 F 09/25/20 13:34 Pulse 115 H 09/25/20 13:34 Resp 18 09/25/20 13:34 BP 128/69 09/25/20 13:34 Pulse Ox 91 L 09/25/20 13:34 Intake & Output 09/24/20 09/25/20 09/25/20 18:59 06:59 18:59 Weight 72.575 kg - Labs CBC & Chem 7: 09/25/20 13:41 09/25/20 13:41 Assessment and Plan Assessment: 1. Chronic kidney disease with impending need for hemodialysis 2. Altered mental status changes Plan: Code stroke initiated. Procedure canceled. The impression and plan of care has been dictated as directed. I performed a history and examination of this patient, discussed the same with the dictator. I agree with the dictator's note ,documented as a scribe. Any additional findings or plans will be noted. <Facundo Marx - Last Filed: 09/26/20 23:26> Subjective Patient was sent for CT of brain and neurology intervention was contacted. Son was updated and Dr. Gale contacted for possible admission Objective - Vital Signs Vital signs: Vital Signs Temp 97.6 F 09/26/20 00:23 Pulse 42 L 09/26/20 00:45 Resp 10 L 09/26/20 00:45 BP 76/42 09/26/20 00:45 Pulse Ox 56 L 09/26/20 00:45 - Labs CBC & Chem 7: 09/25/20 13:41 09/25/20 13:41
[2020-09-25] MEDS ORDERED: ALTEPLASE 59 MG in EMPTY BAG 1 BAG IV STA (14:21)
[2020-09-25] MEDS ORDERED: NALOXONE 0.4 MG/ML 1 ML VIAL IVP STA (14:57)
[2020-09-25] MEDS ORDERED: SODIUM CHLORIDE 0.9% 1,000 ML IV SCH (15:00)
[2020-09-25] MEDS ORDERED: MAGNESIUM SULFATE-D5W PMX 1 GM in DEXTROSE/WATER 1 100ML.BAG IVPB ONE (15:01)
[2020-09-25] MEDS ORDERED: SODIUM CHLORIDE 0.9% 50 ML MINI-BAG IV ONE ×3 (15:18→16:01)
--- NOTE | 2020-09-25 15:42 | XR ---
EXAMINATION TYPE: XR chest 1V portable DATE OF EXAM: 09/25/2020 CLINICAL HISTORY: Weakness. TECHNIQUE: Single AP portable semiupright view of the chest is obtained. COMPARISON: Chest x-ray from July 28, 2020 FINDINGS: There is a large bore right internal jugular dialysis catheter redemonstrated. Surgical cl ips right suprahilar region with right-sided volume loss redemonstrated. Chronic parenchymal changes with small left pleural effusion again seen. Associated left basilar atelectasis and/or infiltrate. T iny right pleural effusion. Osseous structures remain intact. Cardiac silhouette size stable and mild ly enlarged. IMPRESSION: Overall stable findings, small to tiny left greater than right pleural effusions with l eft greater than right bibasilar acute atelectasis and/or infiltrate. Right sided surgical changes an d volume loss redemonstrated. Mild cardiomegaly and chronic changes redemonstrated.
--- NOTE | 2020-09-25 16:44 | P.CNNES ---
History of Present Illness Consult date: 09/25/20 Requesting physician: Jules Lo Reason for Consult: altered mental status, CVA? History of Present Illness: This is an 84-year-old gentleman with medical history of hypertension, left lung cancer status post resection in the left lower lung x2 (>13 years ago and 11 years ago) s/p radiation therapy and chemotherapy, peripheral neuropathy, chronic kidney diseas who presented to the emergency department from outpatient preop on because of sudden onset altered mental status. As result code stroke was activated. History is obtained from patient's son (Wilmer) and medical records. Patient was scheduled for outpatient left upper extremity fistula creation today but prior to the procedure he had altered mental status and was unresponsive. The patient's son and he stated that that today he was doing great at baseline and he talks appropriately and uses a walker then he went to the for the preop and then he was found unresponsive. Because of the episode the procedure was canceled. Thenurse that responded to the stroke code, he felt the patient had the flaccid over the right and he had felt that there is questionable run of A. fib on the monitor. Per the son the patient does not have any history of strokes. He doesn't have any history of atrial fibrillation. Patient resides home alone and the per the son and he talks appropriately. He has peripheral neuropathy as a result of the chemotherapy and the last the radiation chemotherapy is more than 10 years ago. Seems the patient has a history of chronic kidney disease with impeding need for hemodialysis. Patient will medication per EMR is on per his all 20 mg, midodrine 5-10 mg 1 tablet 3 times a day when necessary, Feosol face, metoprolol, calcium. Initial vital signs: Blood pressure is 128/69, heart rate 1:15, respiratory of 18, temperature of 98.0 Fahrenheit oral and pulse ox of 91% room air. His blood pressure got as high as 169/89. CBC with differential is the hemoglobin is 11.5 with a slightly low, the white blood cell is 10.2 thousand which is considered within normal limits, MCV is slightly elevated 112.5 slightly elevated, the platelets is 172K (normal). Chemistry panel is the sodium is 136 which is just low but not too significant. The creatinine is 2.99 which is elevated, creatinine calcium is 6.6 which is low, magnesium is 1.5 which is also low. The AST is 27 ALT is 7. Troponin is a 0.060 with a slightly elevated. Plasma lactic acid vein is 1.1 CT of the head is reported as no acute cranial hemorrhage or midline shift. There is mild to moderate diffuse cerebral atrophy and moderate to severe nonspecific white matter changes favor to reflect part of chronic small vessel ischemic change in a patient of this age. CT angiography of the head and neck is reported as significant stenosis proximal right internal carotid artery. Suspect narrowing near 90%. Consider diuretic catheter angiogram to further evaluate and ordered treat. The body of the report it is reported the patient has moderate to severe mixed plaque at the left carotid bulb extending into the proximal internal and casino supervisor al carotid artery without significant stenosis. Seems the patient has greatest narrowing at the C5-C6 and C6-C7 in the body of report. Coagulation study: PT is 12.7, INR is 1.2, PTT is 29.2 Stroke code is mentioned above was activated and the the ED team spoke with Dr. Gómez and the patient was in Agreement for IV TPA for concern of stroke. She was given IV TPA bolus of 7 mg at 1427 and the remaining the 59 mg was started at 1428 runing for 1 hour. NIH score scale per ED attending was at least 30. Review of Systems Review of system is limited because of the patient condition but per her positive and negative as per HPI. Past Medical History Past Medical History: Cancer, GERD/Reflux, Hypertension, Osteoarthritis (OA), Re nal Disease Additional Past Medical History / Comment(s): LUNG CANCER (partial lobectomy), neuropathy in fingers & feet., BPH, Foot Drop and wears braces on both legs & uses cane. Has started dialysis about one month ago. He will have dialysis on . History of Any Multi-Drug Resistant Organisms: None Reported Past Surgical History: Cholecystectomy, Prostate Surgery Additional Past Surgical History / Comment(s): PARTIAL RIGHT LUNG REMOVED. Past Anesthesia/Blood Transfusion Reactions: No Reported Reaction Past Psychological History: Depression Smoking Status: Former smoker Past Alcohol Use History: None Reported Past Drug Use History: None Reported - Past Family History Brother(s) Family Medical History: Cancer Medications and Allergies Home Medications Medication Instructions Recorded Confirmed Type Allopurinol [Zyloprim] 100 mg PO DAILY 07/10/20 09/25/20 History Metoprolol Tartrate [Lopressor] 12.5 mg PO BID PRN 07/10/20 09/25/20 History Omeprazole 20 mg PO DAILY 07/10/20 09/25/20 History Calcium Acetate [PhosLo] 667 mg PO TID PRN 09/25/20 09/25/20 History Ferrous Sulfate [Feosol] 325 mg PO DAILY 09/25/20 09/25/20 History Midodrine [ProAmatine] 5 - 10 mg PO TID PRN 09/25/20 09/25/20 History Allergies Allergy/AdvReac Type Severity Reaction Status Date / Time No Known Allergies Allergy Verified 09/25/20 15:20 Physical Examination - Vital Signs Vital Signs: Vital Signs Temp Pulse Resp BP Pulse Ox 09/25/20 15:15 90 16 111/73 100 09/25/20 15:00 93 16 120/80 99 09/25/20 14:57 16 09/25/20 14:45 126 H 16 158/84 97 09/25/20 14:40 128 H 16 165/87 100 09/25/20 14:30 125 H 18 169/89 100 09/25/20 14:15 124 H 18 160/85 97 09/25/20 14:00 98.0 F 112 H 16 152/84 99 09/25/20 13:45 98.0 F 120 H 16 126/69 100 09/25/20 13:34 98.0 F 115 H 18 128/69 91 L Intake and Output 09/25/20 09/25/20 09/25/20 06:59 14:59 22:59 Other: Weight 72.575 kg GENERAL: The patient is lying in bed and does not in acute distress. CHEST: The heart rate is regular rate rhythm. +heart murmurs noted over the left side to auscultation. Positive carotid bruit over the left. LUNG: Clear to auscultation bilaterally no wheezing noted throughout. Not labored breathing. ABDOMEN/GI: Bowel sounds present in all 4 quadrants. No tenderness to palpation throughout. NEUROLOGICAL: Higher mental function: The patient is awake but is mute and not responding or following commands. Cranial nerves: The pupils are round (2-3 mm), equal and sluggishly reactive to light . No facial weakness noted. Rest of cranial nerves could not be assessed because of his condition. Motor: No movement noted to command or to painful stimuli. He grimaces face and I felt he grimaces face on the right than the left. Cerebellum: Could not assess. Sensation: Could not assess light touch and to painful stimuli no withdrawing any extremities. Reflexes (right/left): 1+ throughout. Plantars are mute bilaterally. Results - Laboratory Findings CBC and BMP: 09/25/20 13:41 09/25/20 13:41 Abnormal Lab Findings: Abnormal Labs 09/25/20 09/25/20 09/25/20 13:41 13:41 13:41 RBC 3.34 L Hgb 11.5 L Hct 37.6 L MCV 112.5 H MCHC 30.7 L RDW 16.6 H Neutrophils # 9.3 H Lymphocytes # 0.5 L Macrocytosis Marked A PT 12.7 H INR 1.2 H Sodium 136 L Creatinine 2.99 H Calcium 6.6 L Magnesium 1.5 L Troponin I Total Protein 5.6 L Albumin 2.6 L 09/25/20 13:41 RBC Hgb Hct MCV MCHC RDW Neutrophils # Lymphocytes # Macrocytosis PT INR Sodium Creatinine Calcium Magnesium Troponin I 0.060 H* Total Protein Albumin Assessment and Plan Assessment: * Sudden onset of altered mental status/unresponsive (while as preop for cath placement) concern for Acute CVA status post IV TPA (per nurse that responded to stroke code it was felt patient had flaccid over the right and ?run of afib). On current examination he is not moving any extremities and is mute and following commands and felt he grimaces to painful stimuli on the right and not left (Prior to this he was walking with walker and taking appropriately per son). * Significant stenosis proximal right internal carotid artery (Suspect narrowing near 90% per CTA). * Chronic kidney insufficiency * Electrolyte imbalance (hypocaclemia and hypomagnesemia) * Slight elevated troponin (0.06) * Cervical spondylosis * Left lung cancer status post resection in the left lower lung x2 (>13 years ago and 11 years ago) s/p radiation therapy and chemotherapy * History of peripheral neuropathy (result of chemotherapy) Plan: CT of the head is ordered 24 hours post-TPA. Please avoid any antiplatelets within the 24 hours until getting repeat CT (If repeat CT is negative for bleed post 24 hours tpa then will start the patient on ASA 81mg and Plavix 75mg daily). Will start the patient on Lipitor 80mg qhs. Ordered 2-D echo, lipid panel, TSH and hemoglobin A1c. Goal of the systolic blood pressure is less than 185 and diastolic is less than 110 per IV TPA protocol Neuro checks per IV TPA protocol Recommend correction of the electrolyte imbalance, and will defer management to the primary team. Ordered stat EEG because of the sudden onset of altered mental status to rule out any underlying seizures. Patient son does not want any surgical intervention for carotid stenosis. We'll defer the rest of the medical management to primary team. For DVT prophylaxis: SCD (avoid subq heparin or lovenox for now). Code status: DNI and DNR Prognosis appears poor at this state. The plan is discussed with the patient's son (Wilmer who is at bedside). Thank you for the consultation Familia Seo MD Neuro-Hospitalist Time with Patient: Greater than 30
--- NOTE | 2020-09-25 20:26 | P.HPIM ---
History of Present Illness H&P Date: 09/25/20 Chief Complaint: Acute stroke History of presenting complaint: This is a 84-year-old patient, follows with Dr. Karla Soto. Chronic stable medical conditions include GERD, hypertension, obstructive arthritis, peripheral neuropathy, bilateral foot drop. Patient is admitted here to [facility] in July of this year.. Hemodialysis access was placed, right IJ by Dr. Paniagua. Started on hemodialysis. Patient also that admission had hematuria. He followed up at this urologist upon discharge Dr. Fierro and says that hematuria is cleared up and Paniagua catheter was discontinued. Today patient has come to the cardiovascular lab, to get a hemodialysis fistula placed. Patient was in the preoperative area. The nurse left the room and came back to found him unresponsive. It was felt that patient had facial asymmetry in the right side is flaccid. Stroke code was called. Patient was seen by neurologist Dr. Brito. NIH score was greater than 30. Given TPA in the ER. I saw the patient late afternoon. Son at the bedside. Patient had been living by himself. With some help from the son and daughter. Had been using a walker to get about. Appetite had been fair. Currently patient remains unresponsive. Also in atrial fibrillation. Review of systems: Patient unresponsive Past medical history to include: GERD, hypertension, osteoarthritis, kidney failure, lung cancer with partial lobectomy, treated with chemotherapy causing bilateral foot drop and peripheral neuropathy, BPH, end-stage kidney disease with hemodialysis Social history: Patient stopped smoking cigarettes 45 years ago. No alcohol. Lives alone. Using a walker Family history: Cancer Physical examination: VITAL SIGNS: 98, 120s, 16, 152/84, 99% on room air GENERAL: BMI 23.6, thin built, muscle wasting EYES: [Pupils equal and small. Conjunctiva pale. HEENT: External appearance of nose and ears normal, oral cavity grossly normal.- No teeth NECK: JVD not raised; masses not palpable. HEART: Irregular heart sounds; no edema. LUNGS: Respiratory rate normal; decreased breath sounds MUSCULAR skeletal: Evidence of OA. Decreased muscle mass. Bony prominences. ABDOMEN: Soft, scaphoid, nontender, liver spleen not palpable, no masses palpable. PSYCH: Unable to assess NEUROLOGICAL: [Cranial nerves grossly intact; no facial asymmetry, reflexes and plantar:equivocal LYMPHATICS: No lymph nodes palpable in the axilla and neck INVESTIGATIONS, reviewed in the clinical context: WBC 10.2 hemoglobin 11.5 platelets 172 potassium 3.6 creatinine 2.99 Troponin I 0.060 albumin 2.6 EKG tracing personally reviewed by me-normal sinus rhythm, PVC, nonspecific T- wave changes Chest x-ray film personally reviewed by me chronic changes Telemetry tracing personally reviewed by me: Atrial fibrillation rate around 120 Recent testin-D echocardiogram: Here 50-55%. Moderate to severe aortic stenosis. Moderate TR. Assessment and plan: -Acute stroke, with reported right sided weakness in the pre-operative area. Patient found to be in atrial fibrillation. This could be embolic stroke. Patient is given TPA in the ER. Seen by neurologist Dr. Seo. -Patient is currently minimally responsive. NG tube will be placed. Discussed with son at the bedside. 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 NG tube will be placed. Aspirin, Lipitor. Patient received TPA in the ER. Being followed by neurologist. Hemodialysis. Prognosis guarded. Advanced care planning: This was discussed with the patient's son at the bedside. He understands became and patient multiple comorbidity is prognosis guarded. At the present time agree to follow with NG tube and medications. We'll see the course of next 24- 48 hours. If no meaningful recovery then end-of-life care/hospice will be considered. Patient's currently DO NOT RESUSCITATE 15 minutes was spent for a CPE Past Medical History Past Medical History: Cancer, GERD/Reflux, Hypertension, Osteoarthritis (OA), Renal Disease Additional Past Medical History / Comment(s): LUNG CANCER (partial lobectomy), neuropathy in fingers & feet., BPH, Foot Drop and wears braces on both legs & uses cane. Has started dialysis about one month ago. He will have dialysis on . History of Any Multi-Drug Resistant Organisms: None Reported Past Surgical History: Cholecystectomy, Prostate Surgery Additional Past Surgical History / Comment(s): PARTIAL RIGHT LUNG REMOVED. Past Anesthesia/Blood Transfusion Reactions: No Reported Reaction Past Psychological History: Depression Smoking Status: Former smoker Past Alcohol Use History: None Reported Past Drug Use History: None Reported - Past Family History Brother(s) Family Medical History: Cancer Medications and Allergies Home Medications Medication Instructions Recorded Confirmed Type Allopurinol [Zyloprim] 100 mg PO DAILY 07/10/20 09/25/20 History Metoprolol Tartrate [Lopressor] 12.5 mg PO BID PRN 07/10/20 09/25/20 History Omeprazole 20 mg PO DAILY 07/10/20 09/25/20 History Calcium Acetate [PhosLo] 667 mg PO TID PRN 09/25/20 09/25/20 History Ferrous Sulfate [Feosol] 325 mg PO DAILY 09/25/20 09/25/20 History Midodrine [ProAmatine] 5 - 10 mg PO TID PRN 09/25/20 09/25/20 History Allergies Allergy/AdvReac Type Severity Reaction Status Date / Time No Known Allergies Allergy Verified 09/25/20 15:20 Physical Exam Vitals: Vital Signs Temp Pulse Resp BP Pulse Ox 09/25/20 19:30 97.4 F L 110 H 18 115/59 90 L 09/25/20 19:00 112 H 18 108/64 91 L 09/25/20 18:30 101 H 18 110/69 95 09/25/20 18:00 117 H 16 115/63 99 09/25/20 17:30 100 16 139/80 100 09/25/20 17:00 112 H 16 156/83 99 09/25/20 16:30 102 H 16 133/60 99 09/25/20 16:01 122 H 18 157/83 99 09/25/20 16:00 119 H 16 157/81 100 09/25/20 15:30 120 H 16 150/78 99 09/25/20 15:15 90 16 111/73 100 09/25/20 15:00 93 16 120/80 99 09/25/20 14:57 16 09/25/20 14:45 126 H 16 158/84 97 09/25/20 14:40 128 H 16 165/87 100 09/25/20 14:30 125 H 18 169/89 100 09/25/20 14:15 124 H 18 160/85 97 09/25/20 14:00 98.0 F 112 H 16 152/84 99 09/25/20 13:45 98.0 F 120 H 16 126/69 100 09/25/20 13:34 98.0 F 115 H 18 128/69 91 L Intake and Output 09/25/20 09/25/20 09/25/20 06:59 14:59 22:59 Other: Weight 72.575 kg Results CBC & Chem 7: 09/25/20 13:41 09/25/20 13:41 Labs: Abnormal Lab Results - Last 24 Hours (Table) 09/25/20 09/25/20 09/25/20 Range/Units 13:41 13:41 13:41 RBC 3.34 L (4.30-5.90) m/uL Hgb 11.5 L (13.0-17.5) gm/dL Hct 37.6 L (39.0-53.0) % MCV 112.5 H (80.0-100.0) fL MCHC 30.7 L (31.0-37.0) g/dL RDW 16.6 H (11.5-15.5) % Neutrophils # 9.3 H (1.3-7.7) k/uL Lymphocytes # 0.5 L (1.0-4.8) k/uL Macrocytosis Marked A PT 12.7 H (9.0-12.0) sec INR 1.2 H (<1.2) Sodium 136 L (137-145) mmol/L Creatinine 2.99 H (0.66-1.25) mg/dL Calcium 6.6 L (8.4-10.2) mg/dL Magnesium 1.5 L (1.6-2.3) mg/dL Troponin I (0.000-0.034) ng/mL Total Protein 5.6 L (6.3-8.2) g/dL Albumin 2.6 L (3.5-5.0) g/dL 09/25/20 Range/Units 13:41 RBC (4.30-5.90) m/uL Hgb (13.0-17.5) gm/dL Hct (39.0-53.0) % MCV (80.0-100.0) fL MCHC (31.0-37.0) g/dL RDW (11.5-15.5) % Neutrophils # (1.3-7.7) k/uL Lymphocytes # (1.0-4.8) k/uL Macrocytosis PT (9.0-12.0) sec INR (<1.2) Sodium (137-145) mmol/L Creatinine (0.66-1.25) mg/dL Calcium (8.4-10.2) mg/dL Magnesium (1.6-2.3) mg/dL Troponin I 0.060 H* (0.000-0.034) ng/mL Total Protein (6.3-8.2) g/dL Albumin (3.5-5.0) g/dL
[2020-09-25] MEDS ORDERED: METOPROLOL TARTRATE 12.5 MG TAB PO SCH (21:00)
[2020-09-25] MEDS ORDERED: ATORVASTATIN 80 MG TAB PO SCH (21:00)
[2020-09-26 00:25] VITALS: TEMP 97.6
[2020-09-26 03:41] VITALS: BP 76/42; PULSE 42; RESP 10
[2020-09-26] MEDS ORDERED: allopurinoL 100 MG TAB PO SCH (09:00)
[2020-09-26] MEDS ORDERED: PANTOPRAZOLE 40 MG TABLET PO SCH (09:00)
[2020-09-26] MEDS ORDERED: ASPIRIN 81 MG PO SCH (09:00)
[2020-09-26] MEDS ORDERED: ENOXAPARIN 40 MG/0.4 ML SYRINGE SQ SCH (14:00)
--- NOTE | 2020-09-26 21:28 | P.DS ---
Providers Date of admission: 09/25/20 14:59 Expected date of discharge: 09/26/20 Attending physician: Romulo Gale Consults: 09/25/20 15:00 Consult Physician Routine Consulting Provider: Familia Seo Consult Reason/Comments: AMS, CVA? Do you want consulting provider notified?: Already Contacted Consult Physician Routine Consulting Provider: Facundo Marx Consult Reason/Comments: AMS Do you want consulting provider notified?: Already Contacted 09/25/20 20:27 Consult Physician Routine Consulting Provider: Harris Escobar Consult Reason/Comments: Patient on hemodialysis Do you want consulting provider notified?: Yes Primary care physician: Karla Soto [facility] Course: Chief Complaint: Acute stroke History of presenting complaint: This is a 84-year-old patient, follows with Dr. Karla Soto. Chronic stable medical conditions include GERD, hypertension, obstructive arthritis, peripheral neuropathy, bilateral foot drop. Patient is admitted here to [facility] in July of this year.. Hemodialysis access was placed, right IJ by Dr. Paniagua. Started on hemodialysis. Patient also that admission had hematuria. He followed up at this urologist upon discharge Dr. Fierro and says that hematuria is cleared up and Paniagua catheter was discontinued. Today patient has come to the cardiovascular lab, to get a hemodialysis fistula placed. Patient was in the preoperative area. The nurse left the room and came back to found him unresponsive. It was felt that patient had facial asymmetry in the right side is flaccid. Stroke code was called. Patient was seen by neurologist Dr. Brito. NIH score was greater than 30. Given TPA in the ER. I saw the patient late afternoon. Son at the bedside. Patient had been living by himself. With some help from the son and daughter. Had been using a walker to get about. Appetite had been fair. Currently patient remains unresponsive. Also in atrial fibrillation. September 26: Patient had continued do poorly. Early hours of today patient succumbed and Consultation: Dr Dorantes from vascular Dr. Seo from neurology Dr. Escobar from nephrology Past medical history to include: GERD, hypertension, osteoarthritis, kidney failure, lung cancer with partial lobectomy, treated with chemotherapy causing bilateral foot drop and peripheral neuropathy, BPH, end-stage kidney disease with hemodialysis Social history: Patient stopped smoking cigarettes 45 years ago. No alcohol. Lives alone. Using a walker Family history: Cancer INVESTIGATIONS, reviewed in the clinical context: WBC 10.2 hemoglobin 11.5 platelets 172 potassium 3.6 creatinine 2.99 Troponin I 0.060 albumin 2.6 EKG tracing personally reviewed by me-normal sinus rhythm, PVC, nonspecific T- wave changes Chest x-ray film personally reviewed by me chronic changes Telemetry tracing personally reviewed by me: Atrial fibrillation rate around 120 Recent testin-D echocardiogram: Here 50-55%. Moderate to severe aortic stenosis. Moderate TR. Cause of : Acute stroke Assessment and plan: -Acute stroke, with reported right sided weakness in the pre-operative area. Patient found to be in atrial fibrillation. This could be embolic stroke. Patient is given TPA in the ER. Seen by neurologist Dr. Seo. 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 Footdrop support -History of right lower lobe lobectomy for lung cancer -Chronic gait dysfunction uses a walker Fall precautions -Essential hypertension, with chronic kidney diseaseFollow blood pressure closely -Moderate to severe aortic stenosis, non-rheumatic -Secondary pulmonary hypertension, possibly secondary to aortic stenosis -Moderate protein calorie malnutrition Disposition: Patient Plan - Discharge Summary New Discharge Prescriptions: Discontinued Metoprolol Tartrate [Lopressor] 12.5 mg PO BID PRN PRN Reason: HIGH BLOOD PRESSURE Midodrine [ProAmatine] 5 - 10 mg PO TID PRN PRN Reason: Blood Pressure - Low Allopurinol [Zyloprim] 100 mg PO DAILY Omeprazole 20 mg PO DAILY Ferrous Sulfate [Feosol] 325 mg PO DAILY Calcium Acetate [PhosLo] 667 mg PO TID PRN PRN Reason: WITH MEALS Follow up Appointment(s)/Referral(s): None,Stated [REFERRING] - 1-2 days Discharge Disposition: - Preliminary Cause of Preliminary Cause of : Stroke
--- NOTE | 2020-09-29 12:46 | CDI ---
Documentation Clarification Form Date: 09/29/2020 12:33:51 PM From: Rosa ParsonsEDAD moraes, CCDS Admit Date: 09/25/2020 02:59:00 PM Patient Name: Facundo Unger Visit Number: [id number] Discharge Date: 09/26/2020 04:08:00 AM ATTENTION: The Clinical Documentation Specialists (CDI) and [facility] Coding Staff appreciate your assistance in clarifying documentation. Please respond to the clarification below the line at the bottom and electronically sign. The CDI & [facility] Coding staff will review the response and follow-up if needed. Please note: Queries are made part of the Legal Health Record. If you have any questions, please contact the author of this message via ITS. Dr. Romulo Gael: Atrial Fibrillation is documented in the 09/25 ED Note per the EKG, per the 09/25 H/P and per the 09/26 Discharge Summary without further specificity. Per the 09/25 Neurology Consult: the patient does not have a history of atrial fibrillation. Additional clarification regarding the type of atrial fibrillation is requested. History/Risk Factors per the 09/25 H/P: Hypertension, CKD: ESRD on Hemodialysis, Chronic Gait Dysfunction, Bilateral Foot Drop from previous Chemotherapy received for Lung Cancer status post RLL Lobectomy. Clinical Indicators: Presented to the ED on 09/25 as a transfer from the pre-op holding area (waiting for cath placement). A Code Stroke was activated when the patient suddenly became unresponsive. Remained obtunded, TPA was given in the ED. The patient was DNR per his son. ED Clinical Impression: CVA, Acute encephalopathy. 09/25 VS: T 98.0, P 115, R 18, BP 128/59, PO 91 RA, BMI: 23.6 09/25 LAB: Hgb 11.5, Hct 37.6, Neut 9.3, Lymph 0.5, PT 12.7, INR 1.2, Na 136, Creatinine 2.99, Calcium 6.6, Magnesium 1.5, Troponin 0.060, Total Protein 5.6, Albumin 2.6 09/25 Blood gas (VBG): pH 7.38, pCO2 44, HCO3 25 09/25 CXR: Stable findings, small to tiny left > right pleural effusions w/left > right bibasilar acute atelectasis and/or infiltrate. Mild Cardiomegaly. 09/25 EKG: R 117 Atrial fibrillation w/RVR left axis, QRS duration 98, QTC 479, No ST segment elevation, ST segment depression and T wave inversion in the lateral precordial leads. Treatment: IV Na Cl 500 mls @ 999 mls/hr q31M, IV TPA (Alteplase, Recombinant), IV Narcan, IV Na Cl 1,000 mls @ 100 mls/hr q10H, IV MagSulf. Admitted to ICU. Cardiology was not consulted. Please clarify the type of atrial fibrillation, if known: [ ] Chronic [ ] Permanent [ ] Paroxysmal [ ] Persistent [ ] Other, please specify [ ] Unable to determine (Template Last Revised: June 2020) Persistent atrial fibrillation MTDD
--- NOTE | 2020-09-29 13:06 | CDI ---
Documentation Clarification Form Date: 09/29/2020 12:59:00 PM From: Rosa ParsonsEDDA moraes, CCDS Admit Date: 09/25/2020 02:59:00 PM Patient Name: Facundo Unger Visit Number: [id number] Discharge Date: 09/26/2020 04:08:00 AM ATTENTION: The Clinical Documentation Specialists (CDI) and [facility] Coding Staff appreciate your assistance in clarifying documentation. Please respond to the clarification below the line at the bottom and electronically sign. The CDI & [facility] Coding staff will review the response and follow-up if needed. Please note: Queries are made part of the Legal Health Record. If you have any questions, please contact the author of this message via ITS. Dr. Romulo Gale: Per the 09/[address] Angio Head/Neck: CT angiography of the head and neck is reported as significant stenosis proximal right internal carotid artery. The body of the report it is reported the patient has moderate to severe mixed plaque at the left carotid bulb extending into the proximal internal and external carotid artery without significant stenosis. Assessment: Significant stenosis proximal right internal carotid artery (Suspect narrowing near 90% per CTA). Per the 09/25 H/P & 09/26 Discharge Summary: Acute stroke, with reported right sided weakness in the pre-operative area. Patient found to be in atrial fibrillation. This could be embolic stroke. Please clarify the cause of the patient's stroke if possible based on these clinical findings: History/Risk Factors per the 09/25 H/P: Hypertension, CKD: ESRD on Hemodialysis, Chronic Gait Dysfunction, Bilateral Foot Drop from previous Chemotherapy received for Lung Cancer status post RLL Lobectomy. Clinical Indicators: Presented to the ED on 09/25 as a transfer from the pre-op holding area (waiting for vascular cath placement). A Code Stroke was activated when the patient suddenly became unresponsive. Remained obtunded, TPA was given in the ED. The patient was DNR per his son. ED Clinical Impression: CVA, Acute encephalopathy. 09/25 VS: T 98.0, P 115, R 18, BP 128/59, PO 91 RA, BMI: 23.6 09/25 LAB: Hgb 11.5, Hct 37.6, Neut 9.3, Lymph 0.5, PT 12.7, INR 1.2, Na 136, Creatinine 2.99, Calcium 6.6, Magnesium 1.5, Troponin 0.060, Total Protein 5.6, Albumin 2.6 09/25 Blood gas (VBG): pH 7.38, pCO2 44, HCO3 25 09/25 CXR: Stable findings, small to tiny left > right pleural effusions w/left > right bibasilar acute atelectasis and/or infiltrate. Mild Cardiomegaly. 09/25 EKG: R 117 Atrial fibrillation w/RVR left axis, QRS duration 98, QTC 479, No ST segment elevation, ST segment depression and T wave inversion in the lateral precordial leads. Treatment: IV Na Cl 500 mls @ 999 mls/hr q31M, IV TPA (Alteplase, Recombinant), IV Narcan, IV Na Cl 1,000 mls @ 100 mls/hr q10H, IV MagSulf. Admitted to ICU. Please clarify the relationship, if any, which is clinically appropriate for this patient: [ ] Stroke due to Embolic Source, please specify further if possible: [ ] Stroke due to Right Internal Carotid Artery Stenosis [ ] Stroke due to Other, please specify: [ ] Unable to determine (Template Last Revised: April 2020) Stroke due to embolic, from likely underlying atrial fibrillation, possible left atrial MTDD
== END 2020-09-26 04:08 | disposition expired | DRG 61 ==
LOC: EC 13:32 → 2SICU 14:59
PROVIDERS: ADMIT Hospitalist; ATTEND Hospitalist
PROC: 3E03317 Introduction of Other Thrombolytic into Peripheral Vein, Percutaneous Approach (ICD-10-PCS; principal; 2020-09-25)
PROC: 0D9670Z Drainage of Stomach with Drainage Device, Via Natural or Artificial Opening (ICD-10-PCS; 2020-09-25)
DX: I63.10 Cerebral infarction due to embolism of unspecified precerebral artery (principal); N18.6 End stage renal disease; G81.01 Flaccid hemiplegia affecting right dominant side; E44.0 Moderate protein-calorie malnutrition; I12.0 Hypertensive chronic kidney disease with stage 5 chronic kidney disease or end stage renal disease; I48.19 Other persistent atrial fibrillation; R29.730 NIHSS score 30; Z99.2 Dependence on renal dialysis; D63.1 Anemia in chronic kidney disease; D69.6 Thrombocytopenia, unspecified; Z68.23 Body mass index [BMI] 23.0-23.9, adult; E83.42 Hypomagnesemia; E83.51 Hypocalcemia; I27.29 Other secondary pulmonary hypertension; I35.0 Nonrheumatic aortic (valve) stenosis; Z85.118 Personal history of other malignant neoplasm of bronchus and lung; G62.0 Drug-induced polyneuropathy; F32.9 Major depressive disorder, single episode, unspecified; Z66 Do not resuscitate; T45.1X5S Adverse effect of antineoplastic and immunosuppressive drugs, sequela; I65.29 Occlusion and stenosis of unspecified carotid artery; M21.372 Foot drop, left foot; M21.371 Foot drop, right foot; I48.91 Unspecified atrial fibrillation; K21.9 Gastro-esophageal reflux disease without esophagitis; M19.90 Unspecified osteoarthritis, unspecified site; M47.812 Spondylosis without myelopathy or radiculopathy, cervical region; R77.8 Other specified abnormalities of plasma proteins; N40.0 Benign prostatic hyperplasia without lower urinary tract symptoms; Z53.09 Procedure and treatment not carried out because of other contraindication; Z87.891 Personal history of nicotine dependence; Z60.2 Problems related to living alone; R26.9 Unspecified abnormalities of gait and mobility; Z90.49 Acquired absence of other specified parts of digestive tract; Z92.3 Personal history of irradiation; Z92.21 Personal history of antineoplastic chemotherapy; Z90.2 Acquired absence of lung [part of]; Z79.899 Other long term (current) drug therapy
CPT/HCPCS: 36415; 70450; 70496; 70498; 71045; 80053; 82803; 83036; 83605; 83735; 84443; 84484; 85025; 85027; 85610; 85730; 93005; 96365; 96375; 99291

== ENCOUNTER → 2020-09-25 | Day surgery (SDC) | payer MEDICARE ==
[2020-09-22 15:29] VITALS: BMI 17.1
[~2020-09-25] MED LIST: DEXAMETHASONE SOD PHOSPHATE 4 MG/ML 1 ML VIAL IV ONE; HYDROmorphone 0.5 MG/0.5 ML SYRINGE IVP PRN; LACTATED RINGERS 1,000 ML IV SCH; LIDOCAINE 1% (10MG/ML) FOR IV START INTRADERMA PRN; MIDAZOLAM 2 MG/2 ML VIAL IV PRN; ONDANSETRON 4 MG/2 ML VIAL IVP ONE
[2020-09-25 10:45] VITALS: BP 149/77; PULSE 111; RESP 18; TEMP 98.2
[2020-09-25 11:52] LABS: Anisocytosis Slight; HCT 40.7 % (39.0-53.0); HGB 12.6 gm/dL (13.0-17.5); Hypochromasia Marked; MCH 34.8 pg (25.0-35.0); Macrocytosis Marked; Mean Platelet Volume 9.2; Platelet Count 187 k/uL (150-450); RBC 3.62 m/uL (4.30-5.90); RDW 16.8 % (11.5-15.5); WBC 11.5 k/uL (3.8-10.6)
[2020-09-25 11:59] LABS: MCV 112.5 fL (80.0-100.0)
[2020-09-25 12:23] LABS: Albumin 3.8 g/dL (3.5-5.0); Calcium 8.7 mg/dL (8.4-10.2); Potassium 3.6 mmol/L (3.5-5.1); Total Bilirubin 0.8 mg/dL (0.2-1.3); Total Protein 7.3 g/dL (6.3-8.2)
[2020-09-25 13:12] LABS: Glucose,Whole Blood 84 mg/dL (75-99)
--- NOTE | 2020-09-25 13:35 | CT ---
EXAMINATION TYPE: CT brain wo con DATE OF EXAM: 09/25/2020 HISTORY: Unresponsive, code stroke CT DLP: 1142.8 mGycm. Automated Exposure Control for Dose Reduction was Utilized. TECHNIQUE: CT scan of the head is performed without contrast. COMPARISON: None. FINDINGS: There is no acute intracranial hemorrhage or midline shift identified. There is mild-to-m oderate diffuse ventricular and sulcal prominence consistent with diffuse age-related cerebral atroph y. There is more moderate to severe low-attenuation in the teeth and periventricular white matter. L arge mucous retention cyst or polyp in the inferior left maxillary sinus otherwise paranasal sinuses are clear. Globes are intact bilaterally. IMPRESSION: No acute intracranial hemorrhage or midline shift. There is mild to moderate diffuse ce rebral atrophy and moderate to severe nonspecific white matter changes favored to reflect product of chronic small vessel ischemic change in a patient of this age.
[2020-09-25 13:44] LABS: Glucose,Whole Blood 96 mg/dL (75-99)
--- NOTE | 2020-09-25 14:15 | CT ---
EXAMINATION TYPE: CODE STROKE: CTA head neck DATE OF EXAM: 09/25/2020 HISTORY: Unresponsive, code stroke. COMPARISON: None CT DLP: 335.5 mGycm. Automated Exposure Control for Dose Reduction was Utilized. TECHNIQUE: CTA scan of the head and neck are performed with IV Contrast, patient injected with 65 mL of Isovue 370, axial images are obtained, coronal and sagittal reformatted images are reviewed. Thre e-D reconstructed images are created on an independent workstation and reviewed. FINDINGS: Carotid/Vascular Structures: Moderate peripheral calcified plaque in the aortic arch . Bovine type ao rtic arch which is normal variant. No significant stenosis in the great vessels. Normal origin right common carotid artery from the right brachiocephalic artery. [id number] calcified plaque along the common carotid arteries bilaterally without significant stenosis. There is fairly severe predominantly calcified plaque right carotid bulb extending into proximal inte rnal carotid artery causing significant stenosis. Findings difficult to accurately measure due to pre sence of densely calcified plaque which causes blooming artifact. Most prominent areas of involvement noted image 382 of the raw data for reference. There is moderate to severe mixed plaque at left carotid bulb extending into proximal internal and ex ternal carotid arteries without significant stenosis. Patent external carotid arteries bilaterally without significant stenosis. Moderate to severe calcifi ed plaque distal internal carotid arteries bilaterally. Hypoplastic or nonvisualized anterior communi cating artery. No significant focal stenosis or aneurysm in the anterior circulation. Codominant vertebral arteries patent to basilar junction. Hypoplastic bilateral posterior communicati ng arteries. No significant focal stenosis or aneurysmal change in the posterior circulation. Other: Redemonstration of mucous retention cyst or polyp in the inferior left maxillary sinus. There is large bore right internal jugular dialysis catheter extending into SVC. There is at least small left pleural effusion or fluid collection including extension into the superi or left major fissure. Some Mediastinal clips are noted. Exaggerated cervical curvature with moderate to severe multilevel disc space narrowing greatest at C5 -C6 and C6-C7 levels. IMPRESSION: Significant stenosis proximal right internal carotid artery. Suspect narrowing near 90%. Consider direct catheter angiogram to further evaluate and/or treat. NASCET criteria was used in interpretation of this exam?
== END ==
LOC: OR 10:21
PROVIDERS: ATTEND Surgery
DX: Z53.9 Procedure and treatment not carried out, unspecified reason (principal)
CPT/HCPCS: 70450; 70496; 70498; 80053; 85027